=== PATIENT | male | born 1950 | race Caucasian/White ===

== ENCOUNTER 2020-02-18 06:20 | Day surgery (SDC) | payer MEDICARE, SELFPAY ==
[2020-02-12 10:21] VITALS: BMI 23.7
--- NOTE | 2020-02-17 08:33 | HO.ANESPROP2 ---
Documented by User: Althea Carvajal 02/17/20 10:44 HPI - Anesthesia Eval Consult details Narrative: 69yo M for colonoscopy [facility] Past Medical History Medical History Aortic regurgitation Cardiomyopathy History of bradycardia Hypertension Surgical History Surgical History (Updated 02/12/20 @ 10:18 by Elizabeth Savage) Hx of colonoscopy Social History Social History Are you a primary continuum of care manager to a significant other at home: No Do you presently have visiting nurse or other home services: No Smoking Status: Never smoker Use of substances other than those prescribed or required for medical reasons: No Advance Directives: No Advance Directives Information Provided: No Advance Directives on File: No Recently lost weight without trying: No Meds Allergies Allergy/AdvReac Type Severity Reaction Status Date / Time No Known Allergies Allergy Verified 02/12/20 10:18 Home Medications Medication Instructions Recorded Confirmed Type omega-3 fatty acids-vitamin E 1 cap 02/12/20 History [Fish Oil] Exam Exam Date and Time: February 17, 2020 0833 Height,Weight and Vital Signs: Height 5 ft 11 in Weight 77.111 kg Narrative Narrative: ECHO 09/2019: EF 55-60%, mod AR, mild MR, asc aorta dialted @4.1cm - no change from 2019 Assessment and Plan Assessment Anesthesia Assessment: Chart Reviewed Documented by User: Jenn Street 02/18/20 07:24 [facility] Past Medical History Medical History Aortic regurgitation Cardiomyopathy History of bradycardia Hypertension Surgical History Surgical History (Updated 02/12/20 @ 10:18 by Elizabeth Savage) Hx of colonoscopy Social History Social History Are you a primary continuum of care manager to a significant other at home: No Do you presently have visiting nurse or other home services: No Smoking Status: Never smoker Use of substances other than those prescribed or required for medical reasons: No Advance Directives: No Advance Directives Information Provided: No Advance Directives on File: No Recently lost weight without trying: No Meds Allergies Allergy/AdvReac Type Severity Reaction Status Date / Time No Known Allergies Allergy Verified 02/12/20 10:18 Home Medications Medication Instructions Recorded Confirmed Type omega-3 fatty acids-vitamin E 1 cap 02/12/20 History [Fish Oil] Exam Airway Mallampati Class: I TM Dist: >3cm Neck ROM: Full Partial: Lower (Perm) Heart: RRR Lungs: CTA BL Assessment and Plan Assessment Anesthesia Assessment: Anesthesia Plan Discussed and Chart Reviewed Final Anesthetic Review NPO: Yes ASA Class: I Final Preanesthetic Review: Meds/Allgs Chart Reviewed and Consent Obtained/Reviewed Patient Risk: Low Procedure Risk: Intermediate Anesthetic Plan Anesthetic Plan: MAC: Disposition: Standard PACU
[2020-02-18 06:36] VITALS: BP 160/78; PULSE 49; RESP 16; TEMP 36.5; O2SAT 100
[2020-02-18 08:17] VITALS: BP 106/57; PULSE 44; RESP 16; TEMP 36.3; O2SAT 96
--- NOTE | 2020-02-18 08:22 | PM.OP ---
Brief Operative Note Date of procedure: 02/18/20 Pre-op diagnosis: Screening Post-op diagnosis: other (Diverticulosis, Internal hemorrhoids) Procedure: Colonoscopy to cecum and TI Surgeon: Tray Hutson Anesthesia: MAC Estimated blood loss (mL): 0 Pathology: none sent Condition: stable Disposition: PACU
[2020-02-18 08:32] VITALS: BP 142/76; PULSE 41; RESP 18; O2SAT 100
--- NOTE | 2020-02-18 09:03 | HO.POSTANES ---
Post Anesthesia Evaluation Post Anesthesia Evaluation Vital Signs: Vital Signs Temp Pulse Resp BP Pulse Ox 02/18/20 08:32 97.4 F 41 L 18 142/76 H 100 02/18/20 08:17 97.4 F 44 L 16 106/57 L 96 02/18/20 06:36 97.7 F 49 L 16 160/78 H 100 Anesthesia: Monitored Mental Status: Awake Pain Control: Satisfactory Nausea/Vomiting: None Hydration: Adequate Anesthesia-Related Issues: No Anes. Related Issues
--- NOTE | 2020-02-18 10:45 | OP_ITS ---
SURGEON: Tray Hutson MD INDICATIONS: The patient presents for evaluation of colorectal cancer screening, personal history of tubular adenoma of the colon, and family history of colon cancer. Full consent has been obtained from him for this, including risks of bleeding and perforation. PREOPERATIVE DIAGNOSIS: POSTOPERATIVE DIAGNOSIS: PROCEDURE PERFORMED: Colonoscopy to the cecum and terminal ileum. ESTIMATED BLOOD LOSS: COMPLICATIONS: ANESTHESIA: Monitored anesthesia care. ASSISTANTS: SPECIMENS: PREOPERATIVE DIAGNOSES: Colorectal cancer screening, family history of colon cancer, personal history of tubular adenoma of the colon. POSTOPERATIVE DIAGNOSES: Colorectal cancer screening, family history of colon cancer, personal history of tubular adenoma of the colon, mild sigmoid diverticulosis, small internal hemorrhoids. DESCRIPTION OF PROCEDURE: The patient was placed in the left lateral decubitus position. The digital rectal exam revealed no abnormalities. The Olympus video pediatric colonoscope was entered into the rectum and advanced easily to the cecum. Once in the cecum, I did identify normal-appearing cecal pouch with appendiceal orifice and a normal-appearing ileocecal valve. The terminal ileum was cannulated and appeared normal. The scope was withdrawn back in the colon. The entire cecum and ileocecal valve appeared normal. The scope was slowly withdrawn assessing all mucosal surfaces carefully. Preparation was excellent. I did not visualize any sign of polyps, colitis, nor angiodysplasia. There was a mild amount of sigmoid diverticulosis. In the rectum, scope was retroflexed visualizing internal hemorrhoids, but no other pathology. The rectal mucosa appeared normal. The scope was straightened out and withdrawn from the patient. He tolerated the procedure well and was returned to the recovery area in stable condition. IMPRESSION: 1. Mild sigmoid diverticulosis. 2. Internal hemorrhoids. PLAN: Given his previous history of a tubular adenoma and family history of colon cancer, I would recommend a followup colonoscopy in 5 years for further screening. He will otherwise see me on a p.r.n. basis. MD DANDRE Braun/VIRA / [phone]
== END 2020-02-18 09:11 | disposition home or self-care (01) ==
PROVIDERS: PCP Internal Medicine; Visit Provider Internal Medicine
PROC: 0DJD8ZZ Inspection of Lower Intestinal Tract, Via Natural or Artificial Opening Endoscopic (ICD-10-PCS; CPT 45378; principal; 2020-02-18 07:30)
DX: Z12.11 Encounter for screening for malignant neoplasm of colon (principal); Z80.0 Family history of malignant neoplasm of digestive organs; Z86.010 Personal history of colon polyps; K57.30 Diverticulosis of large intestine without perforation or abscess without bleeding; K64.8 Other hemorrhoids
CPT/HCPCS: G0105

== ENCOUNTER 2020-04-15 06:21 | Outpatient (REF) | payer MEDICARE, SELFPAY ==
[2020-04-15 07:04] LABS: Basophils Percent Auto 0.5 % (0-2); Eosinophils Absolute Auto 0.4 X10*3/uL (0.0-0.4); Eosinophils Percent Auto 6.4 % (0-4); Hematocrit 42.2 % (42-52); Hemoglobin 13.7 g/dl (14.0-18.0); Imm Gran Abs Auto 0.01 X10*3/uL (0.00-0.03); Imm Gran Pct Auto 0.2 % (0.0-0.4); Lymphocytes Percent Auto 45.6 % (20-40); MANUAL DIFF FLAG NO; Mean Corpuscular HGB Conc 32.5 g/dl (31.0-36.0); Mean Corpuscular Volume 92.3 fL (80-98); Mean Platelet Volume 9.8 fL (9.4-12.4); Monocytes Absolute Auto 0.5 X10*3/uL (0.1-1.2); Monocytes Percent Auto 8.3 % (2-11); Neutrophils Absolute Auto 2.6 X10*3/uL (2.0-8.3); Platelet Count 242 X10*3/uL (160-400); Red Blood Count 4.57 X10*6/uL (4.60-5.80); Red Cell Distribution Width 12.4 % (11.0-16.0); White Blood Count 6.5 X10*3/uL (4.8-10.8)
[2020-04-15 07:23] LABS: Glucose Urine UA NEG (NEG); Leukocyte Esterase Urine NEG (NEG); Nitrite Urine NEG (NEG); Specific Gravity - Urine 1.025 (1.005-1.025); Urine Blood NEG (NEG); Urine Ketones NEG (NEG); Urine Protein NEG (NEG-TRACE)
[2020-04-15 07:29] LABS: Appearance Urine CLEAR; Color Urine YELLOW
[2020-04-15 07:46] LABS: B Type Natriuretic Peptide 11 pg/mL (<100)
[2020-04-15 07:49] LABS: Alanine Aminotransferase 15 U/L (0-40); Alkaline Phosphatase 67 U/L (39-117); Anion Gap 11 (12-20); Aspartate Amino Transferase 25 U/L (5-37); Bilirubin Total 0.7 mg/dL (0.0-1.0); Blood Urea Nitrogen 26 mg/dL (9-16); C Reactive Protein 0.14 mg/dL (< or = 0.50); Calcium 9.2 mg/dL (8.4-10.2); Carbon Dioxide 27 mmol/L (22-29); Chloride 106 mmol/L (96-108); Cholesterol 261 mg/dL; Estimated Glomerular Filt Rate > 60; Glucose Fasting 97 mg/dL (60-99); HDL Cholesterol 67 mg/dL; LDL Cholesterol Calculated 175 mg/dl; Potassium 4.5 mmol/l (3.3-5.1); Sodium 139 mmol/L (135-145); Total Protein 7.6 g/dL (6.5-8.0); Triglycerides 95 mg/dL
[2020-04-15 07:51] LABS: Erythrocyte Sedimentation Rate 14 MM/HR (0-15)
[2020-04-15 08:14] LABS: Prostate Specific Antigen Scr 0.41 ng/mL (<0.05-4.0); TSH reflex Free T4 3.58 mIU/mL (0.32-4.0); Vitamin D 25-OH Total 27.5 ng/mL (>30)
== END 2020-04-15 06:22 | disposition home or self-care (01) ==
LOC: HO.LAB 06:21
PROVIDERS: PCP Internal Medicine; Visit Provider Internal Medicine
DX: Z00.00 Encounter for general adult medical examination without abnormal findings (principal); I42.9 Cardiomyopathy, unspecified; I35.1 Nonrheumatic aortic (valve) insufficiency; R29.898 Other symptoms and signs involving the musculoskeletal system; E78.00 Pure hypercholesterolemia, unspecified; E55.9 Vitamin D deficiency, unspecified; Z12.5 Encounter for screening for malignant neoplasm of prostate
CPT/HCPCS: 36415; 80053; 80061; 81003; 82306; 82550; 83880; 84153; 84443; 85025; 85652; 86140

== ENCOUNTER 2021-01-21 11:43 | Outpatient (REF) | payer MEDICARE, SELFPAY ==
--- NOTE | ~2021-01-21 | XR_ITS ---
EXAMINATION: XR CERVICAL SPINE CLINICAL INFORMATION: Neck pain. COMPARISON: None TECHNIQUE: 4 views of the cervical spine were obtained. FINDINGS: There is maintained cervical lordosis. The vertebral heights, alignment and disc heights are normal. There is no visible acute fracture, dislocation or subluxation seen. There is mild ventral inferior endplate spondylosis C4 vertebra. There is mild bilateral C4-C5 facet joint arthropathy and hypertrophy. The prevertebral soft tissues are normal. XR/XR cervical spine 3V IMPRESSION: Unremarkable cervical spine exam.
== END 2021-01-21 11:44 | disposition home or self-care (01) ==
LOC: HO.HMGCX 11:43
PROVIDERS: PCP Internal Medicine; Visit Provider Physician Assistant Medical
DX: M54.2 Cervicalgia (principal)
CPT/HCPCS: 72040

== ENCOUNTER 2021-04-20 06:17 | Outpatient (REF) | payer MEDICARE, SELFPAY ==
[2021-04-20 06:33] LABS: MANUAL DIFF FLAG NO
[2021-04-20 07:06] LABS: Basophils Percent Auto 0.5 % (0-2); Eosinophils Absolute Auto 0.4 X10*3/uL (0.0-0.4); Eosinophils Percent Auto 5.7 % (0-4); Hematocrit 42.2 % (42.0-52.0); Hemoglobin 13.6 g/dl (14.0-18.0); Imm Gran Abs Auto 0.02 X10*3/uL (0.00-0.03); Imm Gran Pct Auto 0.3 % (0.0-0.4); Lymphocytes Percent Auto 46.5 % (20-40); Mean Corpuscular HGB Conc 32.2 g/dl (31.0-36.0); Mean Corpuscular Hemoglobin 29.9 pg (27.0-33.0); Mean Corpuscular Volume 92.7 fL (80.0-98.0); Mean Platelet Volume 10.1 fL (9.4-12.4); Monocytes Absolute Auto 0.6 X10*3/uL (0.1-1.2); Monocytes Percent Auto 8.7 % (2-11); Neutrophils Absolute Auto 2.4 x10*3/uL (2.0-8.3); Neutrophils Percent Auto 38.3 % (45-73); Platelet Count 254 X10*3/uL (160-400); Red Blood Count 4.55 X10*6/uL (4.60-5.80); Red Cell Distribution Width 12.5 % (11.0-16.0); White Blood Count 6.3 X10*3/uL (4.8-10.8)
[2021-04-20 07:30] LABS: Alanine Aminotransferase 20 U/L (0-40); Albumin Level 4.1 g/dL (3.5-5.0); Alkaline Phosphatase 65 U/L (39-117); Anion Gap 12 (12-20); Aspartate Amino Transferase 28 U/L (5-37); Bilirubin Total 0.6 mg/dL (0.0-1.0); Blood Urea Nitrogen 26 mg/dL (9-16); Calcium 9.5 mg/dL (8.4-10.2); Carbon Dioxide 26 mmol/L (22-29); Chloride 106 mmol/L (96-108); Cholesterol 267 mg/dL; Estimated Glomerular Filt Rate > 60; Glucose Fasting 98 mg/dL (60-99); HDL Cholesterol 70 mg/dL; LDL Cholesterol Calculated 175 mg/dl; Potassium 4.4 mmol/L (3.3-5.1); Sodium 140 mmol/L (135-145); Total Protein 7.5 g/dL (6.5-8.0); Triglycerides 110 mg/dL
[2021-04-20 07:44] LABS: Appearance Urine CLEAR; Color Urine YELLOW; Glucose Urine UA NEG (NEG); Leukocyte Esterase Urine NEG (NEG); Nitrite Urine NEG (NEG); PH 6.5 (5.0-8.0); Urine Blood NEG (NEG); Urine Ketones NEG (NEG); Urine Protein NEG (NEG-TRACE)
[2021-04-20 07:57] LABS: Prostate Specific Antigen 0.43 ng/mL (<0.05-4.0); Vitamin D 25-OH Total 27.9 ng/mL (>30)
== END 2021-04-20 06:18 | disposition home or self-care (01) ==
LOC: HO.LAB 06:17
PROVIDERS: PCP Internal Medicine; Visit Provider Internal Medicine
DX: Z00.00 Encounter for general adult medical examination without abnormal findings (principal); Z12.5 Encounter for screening for malignant neoplasm of prostate; E78.00 Pure hypercholesterolemia, unspecified; N40.0 Benign prostatic hyperplasia without lower urinary tract symptoms; E55.9 Vitamin D deficiency, unspecified
CPT/HCPCS: 36415; 80053; 80061; 81003; 82306; 84153; 84443; 85025

== ENCOUNTER 2022-04-20 06:23 | Outpatient (REF) | payer MEDICARE, SELFPAY ==
[2022-04-20 06:31] LABS: MANUAL DIFF FLAG NO
[2022-04-20 07:27] LABS: Basophils Percent Auto 0.6 % (0-2); Eosinophils Absolute Auto 0.3 X10*3/uL (0.0-0.4); Eosinophils Percent Auto 5.4 % (0-4); Hematocrit 42.2 % (42.0-52.0); Hemoglobin 13.6 g/dl (14.0-18.0); Imm Gran Abs Auto 0.02 X10*3/uL (0.00-0.03); Imm Gran Pct Auto 0.3 % (0.0-0.4); Lymphocytes Percent Auto 48.1 % (20-40); Mean Corpuscular HGB Conc 32.2 g/dl (31.0-36.0); Mean Corpuscular Hemoglobin 29.6 pg (27.0-33.0); Mean Corpuscular Volume 91.9 fL (80.0-98.0); Mean Platelet Volume 9.9 fL (9.4-12.4); Monocytes Absolute Auto 0.6 X10*3/uL (0.1-1.2); Monocytes Percent Auto 8.9 % (2-11); Neutrophils Absolute Auto 2.3 x10*3/uL (2.0-8.3); Neutrophils Percent Auto 36.7 % (45-73); Platelet Count 244 X10*3/uL (160-400); Red Blood Count 4.59 X10*6/uL (4.60-5.80); Red Cell Distribution Width 12.5 % (11.0-16.0); White Blood Count 6.3 X10*3/uL (4.8-10.8)
[2022-04-20 08:07] LABS: Erythrocyte Sedimentation Rate 12 MM/HR (0-15)
[2022-04-20 08:14] LABS: Alanine Aminotransferase 18 U/L (0-40); Albumin Level 4.2 g/dL (3.5-5.0); Alkaline Phosphatase 57 U/L (39-117); Anion Gap 10 (12-20); Aspartate Amino Transferase 28 U/L (5-37); Blood Urea Nitrogen 25 mg/dL (9-16); Calcium 9.6 mg/dL (8.4-10.2); Carbon Dioxide 30 mmol/L (22-29); Chloride 106 mmol/L (96-108); Cholesterol 267 mg/dL; Estimated Glomerular Filt Rate 58; Glucose Fasting 97 mg/dL (60-99); HDL Cholesterol 68 mg/dL; LDL Cholesterol Calculated 181 mg/dl; Potassium 4.7 mmol/L (3.3-5.1); Prostate Specific Antigen 0.39 ng/mL (<0.05-4.0); Sodium 141 mmol/L (135-145); TSH reflex Free T4 3.15 uIU/mL (0.32-4.0); Total Protein 7.5 g/dL (6.5-8.0); Triglycerides 92 mg/dL; Vitamin D 25-OH Total 30.7 ng/mL (>30)
[2022-04-20 09:05] LABS: Appearance Urine Clear; Color Urine Yellow; Glucose Urine UA Negative (Negative); Leukocyte Esterase Urine Negative (Negative); Nitrite Urine Negative (Negative); PH 6.5 (5.0-9.0); Specific Gravity - Urine 1.025 (1.005-1.025); Urine Blood Negative (Negative); Urine Ketones Negative (Negative); Urine Protein Negative (Neg-Trace)
== END 2022-04-20 06:24 | disposition home or self-care (01) ==
LOC: HO.LAB 06:23
PROVIDERS: PCP Internal Medicine; Visit Provider Internal Medicine
DX: Z00.00 Encounter for general adult medical examination without abnormal findings (principal); Z12.5 Encounter for screening for malignant neoplasm of prostate; R10.11 Right upper quadrant pain; N40.0 Benign prostatic hyperplasia without lower urinary tract symptoms; E55.9 Vitamin D deficiency, unspecified; I10 Essential (primary) hypertension; R30.0 Dysuria; E78.00 Pure hypercholesterolemia, unspecified
CPT/HCPCS: 36415; 80053; 80061; 81003; 82306; 84153; 84443; 85025; 85652

== ENCOUNTER 2022-04-25 13:39 | Outpatient (REF) | payer MEDICARE, SELFPAY ==
--- NOTE | ~2022-04-25 | US_ITS ---
EXAMINATION: US ABDOMEN COMPLETE CLINICAL INFORMATION: Right upper quadrant pain. COMPARISON: None TECHNIQUE: Real-time imaging of the abdominal viscera. Technically difficult study secondary to bowel gas and body habitus. FINDINGS: PANCREAS: The pancreas is obscured by gas. ABDOMINAL AORTA: The abdominal aorta is of normal caliber. INFERIOR VENA CAVA: Visualized portions are normal. LIVER: There is limited visualization of left hepatic lobe. The liver is normal in size. The liver contour is normal. Parenchymal echogenicity is normal. No focal hepatic lesion. There is no intrahepatic biliary duct dilatation seen. GALLBLADDER: Gallbladder wall thickness is 0.6 cm. The gallbladder is physiologically distended without evidence of stones, sludge, polyps, or pericholecystic fluid. COMMON BILE DUCT: Normal in caliber measuring 0.4 cm in diameter. RIGHT KIDNEY: Normal. No hydronephrosis. No renal calculi or focal parenchymal lesions. The kidney measures 10.0 cm in maximum dimension. LEFT KIDNEY: Normal. No hydronephrosis. No renal calculi or focal parenchymal lesions. The kidney measures 10.7 cm in maximum dimension. SPLEEN: Normal. The spleen measures 8.2 cm in maximum dimension. FREE FLUID: None. US/US abdomen complete IMPRESSION: Very limited exam due to body habitus. Otherwise unremarkable complete abdomen ultrasound.
== END 2022-04-25 13:40 | disposition home or self-care (01) ==
LOC: HO.US 13:39
PROVIDERS: Visit Provider Internal Medicine
DX: R10.11 Right upper quadrant pain (principal)
CPT/HCPCS: 76700

== ENCOUNTER 2022-06-03 07:09 | Outpatient (REF) | payer MEDICARE, SELFPAY ==
[2022-06-03 09:10] LABS: Alanine Aminotransferase 19 U/L (0-40); Albumin Level 4.1 g/dL (3.5-5.0); Alkaline Phosphatase 66 U/L (39-117); Anion Gap 13 (12-20); Aspartate Amino Transferase 30 U/L (5-37); Blood Urea Nitrogen 21 mg/dL (9-16); Calcium 9.6 mg/dL (8.4-10.2); Carbon Dioxide 25 mmol/L (22-29); Chloride 108 mmol/L (96-108); Estimated Glomerular Filt Rate > 60; Glucose Random 97 mg/dL (60-115); Sodium 141 mmol/L (135-145); Total Protein 7.4 g/dL (6.5-8.0)
== END 2022-06-03 07:10 | disposition home or self-care (01) ==
LOC: HO.LAB 07:09
PROVIDERS: Nurse Practitioner Family; PCP Internal Medicine; Visit Provider Internal Medicine
DX: R10.11 Right upper quadrant pain (principal)
CPT/HCPCS: 36415; 80053

== ENCOUNTER 2022-06-05 13:11 | Outpatient (REF) | payer MEDICARE, SELFPAY ==
--- NOTE | ~2022-06-05 | CT_ITS ---
EXAMINATION: CT ABDOMEN WITH CONTRAST CLINICAL INFORMATION: Pain of right upper quadrant. COMPARISON: Abdomen ultrasound from 04/25/2022. TECHNIQUE: Contiguous axial thin section helical images of the abdomen were performed following the administration of oral contrast and 85 mL of Omnipaque [address] examination was performed using dose optimization techniques as appropriate, variously including the following: *Automated exposure control *Adjustment of mA and/or kV according to patient size (this includes techniques or standardized protocols for targeted exams where dose is matched to indication/reason for exam; i.e. extremities or head) *Use of iterative reconstruction technique DLP: 224 mGy-cm FINDINGS: LUNG BASES: Minimal linear, hazy opacities of atelectasis in the lung bases. No pulmonary consolidation or pleural effusion. Aortic valve is calcified. No pericardial effusion. LIVER: Liver has normal size and contour. A small area of decreased attenuation in the left hepatic lobe is consistent with focal steatosis near the falciform ligament. No suspicious liver lesion. GALLBLADDER AND BILIARY TREE: Gallbladder is without radiopaque stones, wall thickening or pericholecystic fluid. No dilated bile ducts. PANCREAS: Normal. No edema, pancreatic ductal dilatation or mass. SPLEEN: Normal. ADRENAL GLANDS: Normal. KIDNEYS AND URETERS: Kidneys are normal in size and enhance symmetrically. No nephrolithiasis, hydronephrosis or perinephric edema. Findings include 0.8 cm simple cortical cyst of the left upper pole. No renal imaging follow-up is recommended for simple cysts. The visualized proximal ureters are unremarkable. BOWEL AND PERITONEUM: Stomach and visualized loops of bowel are normal. No focal bowel wall thickening, mesenteric fat stranding or free fluid. No pneumoperitoneum. ABDOMINAL WALL: Minimal protrusion of fat into the umbilicus. VASCULATURE: Mild atherosclerotic calcification of the abdominal aorta without aneurysm. LYMPH NODES: No pathologic sized lymph nodes. MUSCULOSKELETAL: Diffuse idiopathic skeletal hyperostosis as manifest by presence of bulky flowing anterior ligament ossification of the visualized thoracic spine. Prominent enthesophytes and osteophytes of the lumbosacral spine. Moderate degenerative disc space narrowing, vacuum disc phenomenon and 0.3 cm retrolisthesis at L5-S1. No evidence of rib fracture within the visualized portion of the lower chest. CT/CT abdomen w IV con IMPRESSION: * No specific source of right upper quadrant pain is identified. * No CT imaging evidence of cholelithiasis, cholecystitis or biliary tract obstruction. * No inflammatory change or obstruction along the visualized gastrointestinal tract.
[2022-06-05] MEDS: Barium Sulfate Oral (Vanilla) 450 ML ORAL.SUSP PO (15:06)
[2022-06-05] MEDS: iohexoL 350 MG/ML 100 ML INFUS..BTL 85 ML IV (15:06)
== END 2022-06-05 13:12 | disposition home or self-care (01) ==
LOC: HO.CT 13:11
PROVIDERS: PCP Internal Medicine; Visit Provider Nurse Practitioner Family
DX: R10.11 Right upper quadrant pain (principal)
CPT/HCPCS: 74160; Q9967

== ENCOUNTER → 2022-07-28 08:15 | Outpatient (BNVA) | payer MEDICARE, SELFPAY | PROVIDERS: PCP Internal Medicine; Visit Provider Nurse Practitioner Family | DX: R10.11 Right upper quadrant pain (principal) | CPT/HCPCS: 99202 ==

== ENCOUNTER 2022-10-13 06:20 | Outpatient (REF) | payer MEDICARE, SELFPAY ==
[2022-10-13 08:01] LABS: Alanine Aminotransferase 17 U/L (0-40); Alkaline Phosphatase 61 U/L (39-117); Anion Gap 11 (12-20); Aspartate Amino Transferase 34 U/L (5-37); Bilirubin Total 1.3 mg/dL (0.0-1.0); Blood Urea Nitrogen 22 mg/dL (9-16); Calcium 9.5 mg/dL (8.4-10.2); Carbon Dioxide 26 mmol/L (22-29); Chloride 108 mmol/L (96-108); Cholesterol 184 mg/dL; Estimated Glomerular Filt Rate > 60; Glucose Fasting 94 mg/dL (60-99); HDL Cholesterol 73 mg/dL; LDL Cholesterol Calculated 100 mg/dl; Potassium 4.1 mmol/L (3.3-5.1); Sodium 141 mmol/L (135-145); Total Protein 7.5 g/dL (6.5-8.0); Triglycerides 56 mg/dL
== END 2022-10-13 06:21 | disposition home or self-care (01) ==
LOC: HO.LAB 06:20
PROVIDERS: PCP Internal Medicine; Visit Provider Internal Medicine
DX: E78.00 Pure hypercholesterolemia, unspecified (principal)
CPT/HCPCS: 36415; 80053; 80061

== ENCOUNTER 2023-04-14 07:03 | Outpatient (REF) | payer MEDICARE, SELFPAY ==
[2023-04-14 07:16] LABS: MANUAL DIFF FLAG NO
[2023-04-14 09:17] LABS: Basophils Percent Auto 0.3 % (0-2); Eosinophils Absolute Auto 0.4 X10*3/uL (0.0-0.4); Eosinophils Percent Auto 6.1 % (0-4); Hematocrit 40.2 % (42.0-52.0); Hemoglobin 12.9 g/dl (14.0-18.0); Imm Gran Abs Auto 0.02 X10*3/uL (0.00-0.03); Imm Gran Pct Auto 0.3 % (0.0-0.4); Lymphocytes Absolute Auto 3.1 X10*3/uL (1.2-4.9); Lymphocytes Percent Auto 46.7 % (20-40); Mean Corpuscular HGB Conc 32.1 g/dl (31.0-36.0); Mean Corpuscular Hemoglobin 29.9 pg (27.0-33.0); Mean Corpuscular Volume 93.1 fL (80.0-98.0); Mean Platelet Volume 10.2 fL (9.4-12.4); Monocytes Absolute Auto 0.5 X10*3/uL (0.1-1.2); Monocytes Percent Auto 8.1 % (2-11); Neutrophils Absolute Auto 2.5 x10*3/uL (2.0-8.3); Neutrophils Percent Auto 38.5 % (45-73); Platelet Count 225 X10*3/uL (160-400); Red Blood Count 4.32 X10*6/uL (4.60-5.80); Red Cell Distribution Width 12.5 % (11.0-16.0); White Blood Count 6.5 X10*3/uL (4.8-10.8)
[2023-04-14 09:27] LABS: Appearance Urine Clear; Color Urine Yellow; Glucose Urine UA Negative (Negative); Leukocyte Esterase Urine Negative (Negative); Nitrite Urine Negative (Negative); PH 6.5 (5.0-9.0); Specific Gravity - Urine 1.025 (1.005-1.025); Urine Blood Negative (Negative); Urine Ketones Negative (Negative); Urine Protein Negative (Neg-Trace)
[2023-04-14 09:52] LABS: Alanine Aminotransferase 19 U/L (0-40); Albumin Level 4.1 g/dL (3.5-5.0); Alkaline Phosphatase 64 U/L (39-117); Anion Gap 11 (12-20); Aspartate Amino Transferase 34 U/L (5-37); Bilirubin Total 0.7 mg/dL (0.0-1.0); Blood Urea Nitrogen 25 mg/dL (9-16); Calcium 9.4 mg/dL (8.4-10.2); Carbon Dioxide 28 mmol/L (22-29); Chloride 106 mmol/L (96-108); Cholesterol 177 mg/dL (<200); Estimated Glomerular Filt Rate > 60; Glucose Fasting 93 mg/dL (60-99); HDL Cholesterol 74 mg/dL (>40); LDL Cholesterol Calculated 91 mg/dL (<100); Potassium 4.2 mmol/L (3.3-5.1); Sodium 141 mmol/L (135-145); Total Protein 7.7 g/dL (6.5-8.0); Triglycerides 63 mg/dL (<150)
[2023-04-14 09:58] LABS: TSH reflex Free T4 3.44 uIU/mL (0.32-4.0); Vitamin D 25-OH Total 31.8 ng/mL (>30)
[2023-04-14 10:00] LABS: Prostate Specific Antigen 0.38 ng/mL (<0.05-4.0)
== END 2023-04-14 07:04 | disposition home or self-care (01) ==
LOC: HO.LAB 07:03
PROVIDERS: PCP Internal Medicine; Visit Provider Internal Medicine
DX: Z00.00 Encounter for general adult medical examination without abnormal findings (principal); I10 Essential (primary) hypertension; R30.0 Dysuria; E55.9 Vitamin D deficiency, unspecified; N40.0 Benign prostatic hyperplasia without lower urinary tract symptoms; E78.00 Pure hypercholesterolemia, unspecified; Z12.5 Encounter for screening for malignant neoplasm of prostate
CPT/HCPCS: 36415; 80053; 80061; 81003; 82306; 84153; 84443; 85025

== ENCOUNTER 2023-04-20 09:59 | Outpatient (AMB) | payer MEDICARE, SELFPAY ==
[2023-04-20 10:05] VITALS: BP 150/80; PULSE 57; O2SAT 98; BMI 22.4
--- NOTE | 2023-04-20 10:05 | MHC.PC.OV ---
Vital Signs 04/20/23 10:05 04/20/23 10:53 Height 6 ft Weight 165 lb 4 oz BMI 22.4 BP 150/80 H 130/88 Blood Pressure Location Lt brachial Lt brachial Position Sitting Sitting Pulse 57 Pulse Source Pulse Oximeter Pulse Oximetry (%) 98 Oxygen Delivery Method Room Air Intake Visit Reasons: PE Field Care Coordinator Required: No Accompanied by: Self / Same As Patient Allergies No Known Allergies Allergy (Verified 04/20/23 10:43) Medication List - Last Reconciled 04/20/23 by Rinku Biggs MD atorvastatin 10 mg PO BEDTIME 90 days omeprazole 20 mg PO DAILY sildenafil (Viagra) 100 mg PO DAILY PRN 30 days simethicone 125 mg PO BID-QID PRN Tobacco use date assessed: 10/19/22 Fall risk assessment: No Falls in past year Last assessed Fall Risk: 04/20/23 Dental Screening Dental Screen Date: 04/20/23 Did you have a dental visit in the last 12 months?: Yes Did you have a dental problem in the last 6 months where you did not have access to dental care?: No Was dental information given to patient?: Patient has dentist HPI PE HPI Details Patient comes in today for his annual physical examination States that he feels okay BP was at 127/78 mm when he checked it at home yesterday He denies any headaches or dizziness Denies any chest pains, no SOB No nausea/vomiting, no abdominal pain No change in bowel habits noted Denies any acute urinary symptoms Still has on and off right shoulder pain but states that it has been more manageable lately Had his follow up labs done last week - to discuss his results Had his screening colonoscopy last done with Dr. Hutson in January 2020 - was recommended to get repeat colonoscopy in 5 years (2024) PFSH Medical History Thoracic, thoracolumbar and lumbosacral intervertebral disc disorder Erectile dysfunction Vitamin D deficiency Transient leg weakness Pure hypercholesterolemia History of bradycardia Hypertension Aortic regurgitation Cardiomyopathy Surgical History Hx of colonoscopy Family History Father Diabetes Prostate cancer Mother Dementia Social History Housing: House Are you a primary after school caregiver to a significant other at home: No Do you presently have visiting nurse or other home services: No Alcohol intake: current Alcohol intake frequency: holidays/special occasions only Alcohol type: wine Patient Tobacco Use Status: Never used Tobacco e-Cigarette/Vaping Use: Never Used Second Hand Smoke Exposure: No service: No Current occupational status: retired Cognitive needs: No Hearing needs: No Vision needs: No Questionnaire PHQ-9 Over the last 2 weeks, how often have you been bothered by any of the following problems? Depression Screening Interpretation: Negative Depression Screening Done: Yes Source: Developed by Drs. Tray Berman, Sen Duran and colleagues, with an educational gerardo from [employer]. Thrive Questionnaire Date Thrive assessed: 10/19/22 Currently or been in a relationship where the following occur: no concerns reported LOAN-7 AMB Questionnaire LOAN-7 Date LOAN - 7 assessed: 10/19/22 Source: Developed by Drs. Tray Berman, Sen Duran and colleagues, with an educational gerardo from [employer]. Review of Systems Const Denies chills, Denies fatigue, Denies fever(s), Denies headache(s), Denies malaise and Denies weakness Eyes Denies blurry vision, Denies change in vision, Denies irritation and Denies itchy eyes ENT Denies dysphagia, Denies dizziness, Denies otalgia, Denies headache(s), Denies nasal congestion, Denies neck pain, Denies odynophagia and Denies sore throat Card Denies chest pain, Denies rapid heart rate, Denies irregular heart rhythm, Denies palpitations and Denies dyspnea Resp Denies chest congestion, Denies cough, Denies dyspnea and Denies wheezing GI Denies abdominal pain, Denies bloating, Denies constipation, Denies dysphagia, Denies heartburn, Denies diarrhea, Denies nausea, Denies odynophagia and Denies vomiting Denies hematuria, Denies difficulty urinating, Denies dysuria, Denies urinary frequency and Denies urinary urgency Musc Denies back pain, Reports arthralgias (on and off in the right shoulder), Denies joint swelling, Denies muscle weakness and Denies neck pain Skin/Breast Denies change in pigmentation, Denies lesions, Denies rash and Denies unusual bruising Neuro Denies dizziness, Denies headache(s), Denies paresthesias and Denies weakness Endo Denies fatigue and Denies palpitations Aller/Immun Denies itchy eyes and Denies wheezing Physical exam (Primary Care) Vital Signs: Last Vital Signs Pulse 57 04/20/23 10:05 BP 150/80 H 04/20/23 10:05 Pulse Ox 98 04/20/23 10:05 Oxygen Delivery Method Room Air 04/20/23 10:05 BMI result Body Mass Index 22.4 Tobacco/Smoking Status: Tobacco use Status Tobacco use date assessed 10/19/22 04/20/23 10:09 Patient Tobacco Use Status Never used Tobacco 04/20/23 10:09 e-Cigarette/Vaping Use Never Used 04/20/23 10:09 Depression Screening Interpretation: Negative Thrive Assessment: Date of Thrive Assessment Date Thrive assessed 10/19/22 04/20/23 10:09 Currently or been in a relationship where the following occur: no concerns reported Const General: no acute distress, alert and awake Orientation/consciousness: patient oriented x3 HENMT Head: Yes normocephalic and Yes atraumatic Ears: external ears normal, TM's normal bilaterally and EAC's normal General nose exam: No nasal discharge present Face and sinus: Yes normal facial exam and Yes sinuses nontender Teeth and gingiva: dentition normal Throat: Yes posterior oropharynx normal and Yes tonsils normal (no TP congestion) Eyes Eyelids: Yes eyelids normal Conjunctivae: conjunctivae normal Pupils: Equal, round and reactive pupils present EOM: EOMs intact bilaterally Neck Neck: Yes no lymphadenopathy and Yes supple Thyroid: Thyroid normal Resp Auscultation: clear to auscultation bilaterally, no rales and no wheezes Cardio Rate: regular rate Rhythm: regular rhythm Heart sounds: no murmurs GI Palpation (GI): Soft to palpation, nontender and No hepatosplenomegaly present Auscultation: normal bowel sounds General: Yes no CVA tenderness Back/Spine/Pelvis Back: no CVA tenderness Thoracic/Lumbar Spine: thoracic and lumbar spine normal to inspection Skin Lesions: no lesions Rashes: no rashes Neuro General: patient oriented x3, moves all extremities, no focal motor deficits and CN's II-XI intact bilaterally Cranial nerves: Yes Equal, round and reactive pupils present Cognition (Neuro): normal cognition Gait exam (Neuro): Normal gait present Extrem General: Yes no clubbing, cyanosis or edema Results Reviewed Results Reviewed: Laboratory Tests 04/14/23 04/14/23 04/14/23 07:14 07:14 07:15 WBC 6.5 Hgb 12.9 L Hct 40.2 L Plt Count 225 Sodium 141 Potassium 4.2 Creatinine 1.10 Estimated GFR > 60 Fasting Glucose 93 Calcium 9.4 AST 34 ALT 19 Triglycerides 63 Cholesterol 177 LDL Cholesterol, Calc 91 HDL Cholesterol 74 Prostate Specific Ag 0.38 25-OH Vitamin D Total 31.8 TSH Urine pH 6.5 Ur Specific [place] 1.025 Urine Protein Negative Urine Glucose (UA) Negative Urine Blood Negative Urine Nitrite Negative Ur Leukocyte Esterase Negative 04/14/23 07:15 WBC Hgb Hct Plt Count Sodium Potassium Creatinine Estimated GFR Fasting Glucose Calcium AST ALT Triglycerides Cholesterol LDL Cholesterol, Calc HDL Cholesterol Prostate Specific Ag 25-OH Vitamin D Total TSH 3.44 Urine pH Ur Specific [place] Urine Protein Urine Glucose (UA) Urine Blood Urine Nitrite Ur Leukocyte Esterase Assessment and Plan Assessment & Plan (1) Annual physical exam: Code(s): Z00.00 - Encounter for general adult medical examination without abnormal findings Plan: Results of his labs done last week reviewed and discussed with patient He is up-to-date with his screening colonoscopy - is due for repeat colonoscopy in 2024 (2) Pure hypercholesterolemia: Code(s): E78.00 - Pure hypercholesterolemia, unspecified Plan: Advised that his cholesterol levels are adequately controlled and that this is the first time his LDL cholesterol has dropped to under 100 mg/dl Reinforced low cholesterol diet Continue Atorvastatin 10 mg QD Will recheck his labs and fasting lipids in 6 months for follow up (3) Cardiomyopathy: Comment: Sees Dr Wilkes yearly Code(s): I42.9 - Cardiomyopathy, unspecified Qualifiers: Cardiomyopathy type: unspecified Qualified Code(s): I42.9 - Cardiomyopathy, unspecified Plan: Mostly related to his aortic valve insufficiency Has been mostly asymptomatic lately Repeat echocardiogram done in December 2022 revealed normal left ventricular size, with moderate concentric left ventricular hypertrophy and overall left ventricular systolic function is normal, with EF between 60 to 65%. There is grade 1 diastolic dysfunction with an impaired relaxation filling pattern and normal filling pressures. The basal inferior area is mildly hypokinetic and left atrium is mildly dilated; RV systolic function is normal. AV valve is moderated calcified and there is [id number] aortic regurgitation and mild aortic stenosis - findings are most stable compared to echo done on 12/28/2021 Follow-up with cardiology (Dr. Wilkes) as scheduled (4) Aortic regurgitation: Code(s): I35.1 - Nonrheumatic aortic (valve) insufficiency Qualifiers: Cardiac valve disease etiology: nonrheumatic Qualified Code(s): I35.1 - Nonrheumatic aortic (valve) insufficiency Plan: Follow up with cardiology (Dr. Wilkes) as scheduled for continuing management and surveillance Had repeat echocardiogram done in December 2022 - echo findings are mostly unchanged from the year before (5) Elevated blood pressure reading without diagnosis of hypertension: Code(s): R03.0 - Elevated blood-pressure reading, without diagnosis of hypertension Plan: Most likely has white coat syndrome as his BP tends to be consistenly better and normal when he checks his BP at home Reinforced low sodium diet Patient is reminded to continue checking/monitoring his BP routinely at home (6) Mild anemia: Code(s): D64.9 - Anemia, unspecified Plan: H/H are still slightly low on her recent labs but are stable - H/H = 12.9/40.2 last week Will continue to monitor his CBC regularly - will recheck in 6 months (7) Eosinophilia: Code(s): D72.10 - Eosinophilia, unspecified Qualifiers: Eosinophilia type: unspecified eosinophilia Qualified Code(s): D72.10 - Eosinophilia, unspecified Plan: His eosinophil count/percentage has been noted to be slightly elevated persistently over the past few years Patient is currently asymptomatic Will need to continue monitoring this closely and will need further evaluation if this progresses (8) Vitamin D deficiency: Code(s): E55.9 - Vitamin D deficiency, unspecified Plan: Advised that his Vitamin D level came out normal on his recent labs (9) Erectile dysfunction: Code(s): N52.9 - Male erectile dysfunction, unspecified Qualifiers: Erectile dysfunction type: unspecified Qualified Code(s): N52.9 - Male erectile dysfunction, unspecified Plan: Continue Sildenafil 100 mg PRN as instructed Plan Follow up in 6 months Orders: Orders Comprehensive [place]. Panel Fast 6 Months E78.00 - Pure hypercholesterolemia, unspecified Lipid Panel 6 Months E78.00 - Pure hypercholesterolemia, unspecified Complete Blood Count Auto Diff 6 Months D64.9 - Anemia, unspecified, D72.10 - Eosinophilia, unspecified Hemoglobin Electrophoresis 6 Months D64.9 - Anemia, unspecified IRON PROFILE 6 Months D50.9 - Iron deficiency anemia, unspecified Erythropoietin (EPO) 6 Months D64.9 - Anemia, unspecified Vitamin B12 and Folate 6 Months E53.8 - Deficiency of other specified B group vitamins Eosinophil Count, Total 6 Months D72.10 - Eosinophilia, unspecified Coding Level of Care Code Est Pt Prev Care >65y(52290) Diagnoses Annual physical exam Z00.00 Pure hypercholesterolemia E78.00 Cardiomyopathy, unspecified type I42.9 Cardiomyopathy type: unspecified Nonrheumatic aortic valve insufficiency I35.1 Cardiac valve disease etiology: nonrheumatic Elevated blood pressure reading without diagnosis of hypertension R03.0 Mild anemia D64.9 Eosinophilia, unspecified type D72.10 Eosinophilia type: unspecified eosinophilia Vitamin D deficiency E55.9 Erectile dysfunction, unspecified erectile dysfunction type N52.9 Erectile dysfunction type: unspecified
[2023-04-20 10:53] VITALS: BP 130/88
== END 2023-04-20 11:00 | disposition home or self-care (01) ==
PROVIDERS: Visit Provider Internal Medicine
DX: Z00.00 Encounter for general adult medical examination without abnormal findings (principal); E78.00 Pure hypercholesterolemia, unspecified; I42.9 Cardiomyopathy, unspecified; I35.1 Nonrheumatic aortic (valve) insufficiency; R03.0 Elevated blood-pressure reading, without diagnosis of hypertension; D64.9 Anemia, unspecified; D72.10 Eosinophilia, unspecified; E55.9 Vitamin D deficiency, unspecified; N52.9 Male erectile dysfunction, unspecified
CPT/HCPCS: 99397

== ENCOUNTER 2023-05-21 08:23 | Outpatient (AMB) | payer MEDICARE, SELFPAY ==
[2023-05-21 08:26] VITALS: BP 136/80; PULSE 60; TEMP 36.6; O2SAT 98; BMI 22.4
--- NOTE | 2023-05-21 08:26 | MHC.OFFWIV ---
Intake Vital Signs 05/21/23 08:26 Height 6 ft Weight 165 lb BMI 22.4 BP 136/80 Blood Pressure Location Lt brachial Position Sitting Pulse 60 Pulse Source Pulse Oximeter Temp 98 F Temp Source Oral Pulse Oximetry (%) 98 Intake Visit Reasons: EST/possible bpressure issues/dizziness(lobby) Intake Note: pt is here for c.o dizziness since sunday and states he concerned about bp pressure and states he is not diagnosed with HTN but has been having high readings Patient Tobacco Use Status: Never used Tobacco Allergies No Known Allergies Allergy (Verified 05/21/23 08:53) Medication List - Last Reconciled 05/21/23 by Herbert Downey MD atorvastatin 10 mg PO BEDTIME 90 days omeprazole 20 mg PO DAILY sildenafil (Viagra) 100 mg PO DAILY PRN 30 days simethicone 125 mg PO BID-QID PRN Do you need a note to return to daycare/school/sports/work: Yes HPI EST/possible bpressure issues/dizziness(lobby) HPI Details 72-year-old male presents to the office for a sick visit. 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 He usually runs once a week. On Sunday after he finished the run, he started experiencing symptoms of dizziness. He was a bit unsteady but had no fall. His encouraged him to check the blood pressures and the systolic blood pressures were greater than 160, he checked the blood pressures on 2 separate occasions. Dizzy symptoms have abated but blood pressure continues to be slightly above normal. Reports no chest pains, shortness of breath. Had a full physical a month ago. No history of high blood pressure in the past. [facility] Medical History Thoracic, thoracolumbar and lumbosacral intervertebral disc disorder Erectile dysfunction Vitamin D deficiency Transient leg weakness Pure hypercholesterolemia History of bradycardia Hypertension Aortic regurgitation Cardiomyopathy Surgical History Hx of colonoscopy Family History Father Diabetes Prostate cancer Mother Dementia Social History Housing: House Are you a primary field care advocate to a significant other at home: No Do you presently have visiting nurse or other home services: No Alcohol intake: current Alcohol intake frequency: holidays/special occasions only Alcohol type: wine Patient Tobacco Use Status: Never used Tobacco e-Cigarette/Vaping Use: Never Used Second Hand Smoke Exposure: No service: No Current occupational status: retired Cognitive needs: No Hearing needs: No Vision needs: No Physical Exam Vital Signs: Last Vital Signs Temp 98 F 05/21/23 08:26 Pulse 60 05/21/23 08:26 BP 136/80 05/21/23 08:26 Pulse Ox 98 05/21/23 08:26 BMI result Body Mass Index 22.4 Const General: cooperative and healthy appearing Nutritional Appearance: well nourished Orientation/consciousness: patient oriented x3 Limitations: no limitations HEENT Head: Yes normal to inspection Eyes General: appearance normal, both eyes and all related structures Neck Neck: Yes normal visual inspection Chest Chest palpation & inspection: normal palpation of entire chest wall Resp Effort & Inspection: normal respiratory effort Neuro General: patient oriented x3 Office Procedures EKG Details: Sinus Bradycardia. NSR [id number], Complete Assessment & Plan Assessment & Plan (1) Elevated blood pressure reading without diagnosis of hypertension: Code(s): R03.0 - Elevated blood-pressure reading, without diagnosis of hypertension Plan: Lisinopril started at 5 mg a day. Pt advised to follow up with PCP. EKG revd.BW done recently revd. Orders: Orders AMB EKG-In Office Today R07.9 - Chest pain, unspecified Coding Level of Care Code Est Pt Level 4 (34922) Diagnoses Elevated blood pressure reading without diagnosis of hypertension R03.0 CPT Codes EKG - CPT: 89098-[id number], Complete ([id number])
== END 2023-05-21 09:19 | disposition home or self-care (01) ==
PROVIDERS: PCP Internal Medicine; Visit Provider Internal Medicine
DX: R03.0 Elevated blood-pressure reading, without diagnosis of hypertension (principal)
CPT/HCPCS: 93000; 99214

== ENCOUNTER 2023-05-22 13:33 | Outpatient (AMB) | payer MEDICARE, SELFPAY ==
[2023-05-22 13:42] VITALS: BP 118/80; PULSE 56; O2SAT 99; BMI 23.0
--- NOTE | 2023-05-22 13:42 | MHC.PC.OV ---
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 Accompanied by: Self / Same As Patient Allergies No Known Allergies Allergy (Verified 05/22/23 14:18) Medication List - Last Reconciled 05/22/23 by Rinku Biggs MD atorvastatin 10 mg PO BEDTIME 90 days lisinopril 5 mg PO DAILY omeprazole 20 mg PO DAILY sildenafil (Viagra) 100 mg PO DAILY PRN 30 days simethicone 125 mg PO BID-QID PRN Tobacco use date assessed: 05/22/23 Fall risk assessment: No Falls in past year Last assessed Fall Risk: 05/22/23 Dental Screening Dental Screen Date: 05/22/23 Did you have a dental visit in the last 12 months?: Yes Did you have a dental problem in the last 6 months where you did not have access to dental care?: No Was dental information given to patient?: Patient has dentist HPI [facility] F/U HPI Details Patient comes in today for follow up of his recent symptoms Relates that he has been experiencing on and off dizziness since he went running last Sunday (3 days ago) Has noticed that his blood pressure was high a few times when he was checking it frequently over the past few days States that he went to urgent care yesterday afternoon for his recurrent symptoms and his systolic BP was around 137 mm An EKG was done for further evaluation - EKG showed sinus bradycardia with 1st degree AV block; EKG was otherwise normal He also had some labs done recently, which were all within normal limits, so no additional labs were ordered Patient states that he has since gone back to the gym and worked out for about 1.5 hours yesterday with little issues His systolic BP was noted again to be at 140 mm this morning; states that he went to the gym again earlier today to work out and he's had no issues so far while he was working out States that he currently feels okay He denies any headaches Denies any chest pains, no SOB No nausea/vomiting and no abdominal pain No change in bowel habits noted [facility] Medical History Thoracic, thoracolumbar and lumbosacral intervertebral disc disorder Erectile dysfunction Vitamin D deficiency Transient leg weakness Pure hypercholesterolemia History of bradycardia Hypertension Aortic regurgitation Cardiomyopathy Surgical History Hx of colonoscopy Family History Father Diabetes Prostate cancer Mother Dementia Social History Housing: House Are you a primary transitional care liaison to a significant other at home: No Do you presently have visiting nurse or other home services: No Alcohol intake: current Alcohol intake frequency: holidays/special occasions only Alcohol type: wine Patient Tobacco Use Status: Never used Tobacco e-Cigarette/Vaping Use: Never Used Second Hand Smoke Exposure: No service: No Current occupational status: retired Cognitive needs: No Hearing needs: No Vision needs: No Questionnaire PHQ-9 Over the last 2 weeks, how often have you been bothered by any of the following problems? 1. Little interest or pleasure in doing things: not at all 2. Feeling down, depressed, or hopeless: not at all 3. Trouble falling or staying asleep, or sleeping too much: not at all 4. Feeling tired or having little energy: not at all 5. Poor appetite or overeating: not at all 6. Feeling bad about yourself - or that you are a failure or have let yourself or your family down: not at all 7. Trouble concentrating on things, such as reading the newspaper or watching television: not at all 8. Moving or speaking so slowly that other people could have noticed. Or the opposite - being so fidgety or restless that you have been moving around a lot more than usual: not at all 9. Thoughts that you would be better off or of hurting yourself in some way: not at all Total score: 0 Depression Screening Interpretation: Negative Depression Screening Done: Yes 06373 - PHQ-9 Billing: Yes Source: Developed by Drs. Tray Berman, Ramandeep Aaron, Sen Baker and colleagues, with an educational gerardo from [employer]. Thrive Questionnaire Date Thrive assessed: 05/22/23 I am a: Patient What is your living situation today?: I have a steady place to live Within the past 12 months, did the food you bought not last and you didn't have the money to get more?: Never true Within the past 12 months, did you worry whether your food would run out before you got money to buy more?: Never true Do you have trouble paying for medicines?: No Do you have trouble getting transportation to medical appointments?: No Do you have trouble paying your heating and electricity bill?: No Do you have trouble taking care of your child, family member or friend?: No Do you have trouble with day-to-day activities such as bathing, preparing meals, shopping, managing finances, etc.?: No Are you currently unemployed and looking for a job?: No Are you interested in more education?: No Please select the resources that you would like help with: None Currently or been in a relationship where the following occur: no concerns reported THRIVE Score: 0 AUDIT C Alcohol Use Questionnaire (AUDIT-C) 1. How often do you have a drink containing alcohol?: 2-4 times a month 2. How many drinks containing alcohol do you have on a typical day when you are drinking?: 3 or 4 3. How often do you have six or more drinks on one occasion?: Never Total Score: 3 Score Reviewed/Action Taken: Yes LOAN-7 AMB Questionnaire OLAN-7 Date LOAN - 7 assessed: 05/22/23 Feeling nervous, anxious, or on edge: 0 = Not at all Not being able to stop or control worryin = Not at all Worrying too much about different things: 0 = Not at all Trouble relaxin = Not at all Being so restless that it is hard to sit still: 0 = Not at all Becoming easily annoyed or irritable: 0 = Not at all Feeling afraid as if something awful might happen: 0 = Not at all Total LOAN-7 score (0-4 normal; 5-9 mild; 10-14 moderate; 15-21 severe): 0 Source: Developed by Drs. Tray Berman, Ramandeep Aaron, Sen Baker and colleagues, with an educational gerardo from [employer]. Review of Systems Const Denies chills, Denies fatigue, Denies fever(s) and Denies headache(s) ENT Denies dysphagia, Reports dizziness (over past few days - see HPI), Denies otalgia, Denies headache(s), Denies neck pain, Denies odynophagia and Denies sore throat Card Denies chest pain, Denies palpitations and Denies dyspnea Resp Denies cough, Denies dyspnea and Denies wheezing GI Denies abdominal pain, Denies constipation, Denies dysphagia, Denies heartburn, Denies diarrhea, Denies nausea, Denies odynophagia and Denies vomiting Denies dysuria, Denies nocturia and Denies urinary frequency Musc Denies back pain, Denies arthralgias and Denies neck pain Skin/Breast Denies rash Neuro Reports dizziness (over past few days - see HPI) and Denies headache(s) Endo Denies fatigue and Denies palpitations Aller/Immun Denies wheezing Physical exam (Primary Care) Vital Signs: Last Vital Signs Pulse 56 05/22/23 13:42 BP 140/80 H 05/22/23 14:40 Pulse Ox 99 05/22/23 13:42 Oxygen Delivery Method Room Air 05/22/23 13:42 BMI result Body Mass Index 23.0 Tobacco/Smoking Status: Tobacco use Status Tobacco use date assessed 05/22/23 05/22/23 13:48 Patient Tobacco Use Status Never used Tobacco 05/22/23 13:48 e-Cigarette/Vaping Use Never Used 05/22/23 13:48 PHQ-9: PHQ-9 Score PHQ-9: Total score 0 05/22/23 14:47 Depression Screening Interpretation: Negative Thrive Assessment: Date of Thrive Assessment Date Thrive assessed 05/22/23 05/22/23 13:48 Currently or been in a relationship where the following occur: no concerns reported Const General: no acute distress and alert HENMT Ears: TM's normal bilaterally and EAC's normal Throat: Yes posterior oropharynx normal and Yes tonsils normal (no TP congestion) Neck Neck: Yes no lymphadenopathy and Yes supple Thyroid: Thyroid normal Resp Auscultation: clear to auscultation bilaterally, no rales and no wheezes Cardio Rate: regular rate Rhythm: regular rhythm Heart sounds: Murmur heart sound present diastolic blowing, soft, II/ and at the left sternal border GI Palpation (GI): Soft to palpation and nontender Auscultation: normal bowel sounds General: Yes no CVA tenderness Back/Spine/Pelvis Back: no CVA tenderness Skin Rashes: no rashes Extrem General: Yes no clubbing, cyanosis or edema Assessment and Plan Assessment & Plan (1) Cardiomyopathy: Comment: Sees Dr Wilkes yearly Code(s): I42.9 - Cardiomyopathy, unspecified Qualifiers: Cardiomyopathy type: unspecified Qualified Code(s): I42.9 - Cardiomyopathy, unspecified Plan: Mostly related to his aortic valve insufficiency Has been mostly asymptomatic lately until his recent bouts of dizziness (see HPI) Repeat echocardiogram done in December 2022 revealed normal left ventricular size, with moderate concentric left ventricular hypertrophy and overall left ventricular systolic function is normal, with EF between 60 to 65%. There is grade 1 diastolic dysfunction with an impaired relaxation filling pattern and normal filling pressures. The basal inferior area is mildly hypokinetic and left atrium is mildly dilated; RV systolic function is normal. AV valve is moderated calcified and there is [id number] aortic regurgitation and mild aortic stenosis - findings are mostly stable compared to echo done on 12/28/2021 Follow-up with cardiology (Dr. Wilkes) as scheduled (2) Aortic regurgitation: Code(s): I35.1 - Nonrheumatic aortic (valve) insufficiency Qualifiers: Cardiac valve disease etiology: nonrheumatic Qualified Code(s): I35.1 - Nonrheumatic aortic (valve) insufficiency Plan: Follow up with cardiology (Dr. Wilkes) as scheduled for continuing management and surveillance Had repeat echocardiogram done in December 2022 - echo findings are mostly unchanged from the year before His recent recurrent dizziness raises some concerns regarding this although they could be due to vertigo but patient states that his dizziness does not feel like his surroundings are spinning Will have him get a repeat echocardiogram JONNY for further evaluation (3) Pure hypercholesterolemia: Code(s): E78.00 - Pure hypercholesterolemia, unspecified Plan: Reinforced low cholesterol diet Continue Atorvastatin 10 mg QD (4) Elevated blood pressure reading without diagnosis of hypertension: Code(s): R03.0 - Elevated blood-pressure reading, without diagnosis of hypertension Plan: His BP in the office today is again slightly elevated He most likely has white coat syndrome as his BP tends to be consistently better and normal when he checks it at home Reinforced low sodium diet Patient is reminded to continue checking/monitoring his BP routinely at home (5) Mild anemia: Code(s): D64.9 - Anemia, unspecified Plan: H/H are still slightly low on her recent labs but are stable - H/H = 12.9/40.2 Will continue to monitor his CBC regularly (6) Eosinophilia: Code(s): D72.10 - Eosinophilia, unspecified Qualifiers: Eosinophilia type: unspecified eosinophilia Qualified Code(s): D72.10 - Eosinophilia, unspecified Plan: His eosinophil count/percentage has been noted to be slightly elevated persistently over the past few years Patient is currently asymptomatic Will need to continue monitoring this closely and will need further evaluation if this progresses Plan Follow up in 3 months Orders: Orders CA echo transthoracic complete 05/22/23 R01.1 - Cardiac murmur, unspecified Coding Level of Care Code Est Pt Level 3 (96246) Diagnoses Cardiomyopathy, unspecified type I42.9 Cardiomyopathy type: unspecified Nonrheumatic aortic valve insufficiency I35.1 Cardiac valve disease etiology: nonrheumatic Pure hypercholesterolemia E78.00 Elevated blood pressure reading without diagnosis of hypertension R03.0 Mild anemia D64.9 Eosinophilia, unspecified type D72.10 Eosinophilia type: unspecified eosinophilia
[2023-05-22 14:40] VITALS: BP 140/80
== END 2023-05-22 14:50 | disposition home or self-care (01) ==
PROVIDERS: PCP Internal Medicine; Visit Provider Internal Medicine
DX: I42.9 Cardiomyopathy, unspecified (principal); I35.1 Nonrheumatic aortic (valve) insufficiency; E78.00 Pure hypercholesterolemia, unspecified; R03.0 Elevated blood-pressure reading, without diagnosis of hypertension; D64.9 Anemia, unspecified; D72.10 Eosinophilia, unspecified
CPT/HCPCS: 99213

== ENCOUNTER → 2023-06-08 12:49 | Outpatient (REF) | payer MEDICARE, SELFPAY ==
--- NOTE | 2023-06-08 12:51 | CA_ITS ---
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 There is mildly increased left ventricular wall thickness. The visually estimated ejection fraction is between 60-65%. There is no evidence of regional wall motion abnormalities. Diastolic function is normal for age. Normal strain -20%. - Mildly increased right ventricular cavity size. There is normal right ventricular systolic function. - The left atrium is moderately dilated. - There is mild aortic valve stenosis. There is mild to moderate aortic valve regurgitation. - There is mild dilatation of the sinuses of Valsalva measuring 4.32 cm and mild dilatation of the ascending aorta measuring 4.00 cm. - There is a bicuspid aortic valve. The raphe is between the right coronary cusp and non coronary cusp. Findings Left Ventricle Normal left ventricular size and systolic function. There is mildly increased left ventricular wall thickness. The visually estimated ejection fraction is between 60-65%. There is no evidence of regional wall motion abnormalities. Diastolic function is normal for age. Normal strain -20%. Right Ventricle Mildly increased right ventricular cavity size. There is normal right ventricular systolic function. Atria The left atrium is moderately dilated. Aortic Valve There is a bicuspid aortic valve. The raphe is between the right coronary cusp and non coronary cusp. There is moderate calcification of the aortic valve. There is mild aortic valve stenosis. There is mild to moderate aortic valve regurgitation. Mitral Valve Normal mitral valve structure and function. There is trace mitral valve regurgitation. There is no mitral valve stenosis. Pulmonic Valve Normal pulmonic valve structure and function. Tricuspid Valve Normal tricuspid valve structure and function. There is no tricuspid valve regurgitation. Tricuspid regurgitation envelope is inadequate for calculation of right ventricular systolic pressure. Normal right atrial pressure. Great Vessels There is mild dilatation of the sinuses of Valsalva measuring 4.32 cm and mild dilatation of the ascending aorta measuring 4.00 cm. The visualized portions of the pulmonary artery and branches are normal. Venous The inferior vena cava is normal in size and collapses greater than 50% with inspiration. Pericardium/Pleural There is no evidence of pericardial effusion. Prior Study Comparison No prior study available for comparison. Measurements 2D Linear Measurements IVSd: 1.16 0.6-0.9/0.6-1.0 cm LVIDd: 3.96 3.9-5.3/4.2-5.9 cm LVIDd Index: 2.00 2.4-3.2/2.2-3.1 cm/m2 LVIDs: 2.71 2.0-3.6 cm LVPWd: 1.03 0.7-1.1 cm LA Diam: 3.20 2.7-3.8/3.0-4.0 cm LAIDs Index: 1.62 1.5-2.3 cm/m2 LV Mass: 177.33 67-162/88-224 g LV Mass Index: 89.56 43-95/49-115 g/m2 LVOT Diam: 2.50 3.0+(-)1.3 cm 2D Systolic Function EF 4C: 65.30 >55% EF 2C: 62.20 >55% EF BiP: 64.20 >55% Mitral Valve MV Pk E: 0.57 MV PK A: 0.51 MV Decel Time: 227.00 E/A: 1.10 E'Lateral: 7.72 E'Medial: 5.55 E/E' Med: 10.30 E/E' Lat: 7.40 PHT: 66.00 MVA PHT: 3.33 [place]: 2.53 Aortic Valve AoV Pk Mitesh: 2.44 AoV Mn Mitesh: 1.72 AoV VTI: 0.58 AoV Pk Grad: 24.00 Aov Mn Grad: 13.00 STEFANIE Cont.VTI: 3.02 AI Pk Mitesh: 3.95 AI VTI: 3.05 AI Hill: 1.68 LVOT LVOT Pk Mitehs: 1.46 LVOT Mn Mitesh: 0.95 LVOT VTI: 0.36 LVOT Pk Grad: 9.00 LVOT Mn Grad: 4.00 LVOT Diam: 2.50 LVOT Area: 4.91 Diastolic Function MV Pk E: 0.57 MV Pk A: 0.51 E/A: 1.10 E'Medial: 5.55 E/E' Med: 10.30 E' Laterial: 7.72 E/E' Lat: 7.40 Right Ventricle TAPSE (mm): 26.20 TVS' Mitesh: 13.10 Great Vessels Aorta Sinus of Valsalva: 4.32 2.0-3.[address] Ridge: 3.07 1.7-3.4 cm Ao Asc: 4.00 2.1-3.4 cm Ao Arch: 3.20 Updated in Other Vendor System with Status of Final Patrice Watkins MD electronically signed on 06/09/2023 12:07:32 PM with status of Final
== END ==
LOC: HO.CARD 12:49
PROVIDERS: PCP Internal Medicine; Visit Provider Internal Medicine
DX: R01.1 Cardiac murmur, unspecified (principal)
CPT/HCPCS: 93306; 93356

== ENCOUNTER → 2023-06-08 12:51 | Outpatient (BNV) | payer MEDICARE, SELFPAY | PROVIDERS: PCP Internal Medicine; Visit Provider Internal Medicine Cardiovascular Disease | DX: I35.2 Nonrheumatic aortic (valve) stenosis with insufficiency (principal) | CPT/HCPCS: 93306 ==

== ENCOUNTER 2023-08-24 10:49 | Outpatient (AMB) | payer MEDICARE, SELFPAY ==
--- NOTE | 2023-08-24 10:56 | A.OFFPC_ITS ---
Vital Signs 08/24/23 10:57 Height 6 ft Weight 166 lb 4 oz BMI 22.5 BP 118/62 Blood Pressure Location Lt brachial Position Sitting Pulse 52 Pulse Source Pulse Oximeter Pulse Oximetry (%) 98 Oxygen Delivery Method Room Air Intake Visit Reasons: HTN, cardiac murmur Intake Note: Patient is here to follow up on HTN, Cardiac Murmur. 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 Arc: Not Required per policy Accompanied by: Self / Same As Patient Allergies No Known Allergies Allergy (Verified 08/24/23 11:37) Medication List - Last Reconciled 08/24/23 by Rinku Biggs MD atorvastatin 10 mg PO BEDTIME 90 days lisinopril 5 mg PO DAILY 90 days omeprazole 20 mg PO DAILY sildenafil (Viagra) 100 mg PO DAILY PRN 30 days Tobacco use date assessed: 08/24/23 Fall risk assessment: No Falls in past year Last assessed Fall Risk: 08/24/23 Dental Screening Dental Screen Date: 05/22/23 HPI HTN, cardiac murmur HPI Details Patient comes in today for follow up of his recent echocardiogram report Patient states that he feels okay He denies any headaches or dizziness - states that he has not had any of the dizzy spells that he had a few months ago lately Denies any chest pains, no SOB No nausea/vomiting, no abdominal pain No change in bowel habits noted [facility] Medical History (Updated 08/26/23 @ 21:44 by Rinku Biggs MD) Essential hypertension Thoracic, thoracolumbar and lumbosacral intervertebral disc disorder Erectile dysfunction Vitamin D deficiency Transient leg weakness Pure hypercholesterolemia History of bradycardia Hypertension Aortic regurgitation Cardiomyopathy Surgical History Hx of colonoscopy Family History Father Diabetes Prostate cancer Mother Dementia Social History Housing: House Are you a primary healthcare science specialist to a significant other at home: No Do you presently have visiting nurse or other home services: No Alcohol intake: current Alcohol intake frequency: holidays/special occasions only Alcohol type: wine Patient Tobacco Use Status: Never used Tobacco e-Cigarette/Vaping Use: Never Used Second Hand Smoke Exposure: No service: No Current occupational status: retired Cognitive needs: No Hearing needs: No Vision needs: No Questionnaire PHQ-9 Over the last 2 weeks, how often have you been bothered by any of the following problems? Depression Screening Interpretation: Negative Depression Screening Done: Yes Source: Developed by Drs. Tray Berman, Ramandeep Aaron, Sen Baker and colleagues, with an educational gerardo from [employer]. Thrive Questionnaire Date Thrive assessed: 05/22/23 Currently or been in a relationship where the following occur: no concerns reported THRIVE Score: 0 LOAN-7 AMB Questionnaire LOAN-7 Date LOAN - 7 assessed: 05/22/23 Source: Developed by Drs. Tray Berman, Ramandeep Aaron, Sen Baker and colleagues, with an educational gerardo from [employer]. Review of Systems Const Denies chills, Denies fatigue, Denies fever(s) and Denies headache(s) ENT Denies dysphagia, Denies dizziness, Denies otalgia, Denies headache(s), Denies neck pain, Denies odynophagia and Denies sore throat Card Denies chest pain, Denies palpitations and Denies dyspnea Resp Denies cough, Denies dyspnea and Denies wheezing GI Denies abdominal pain, Denies constipation, Denies dysphagia, Denies heartburn, Denies diarrhea, Denies nausea, Denies odynophagia and Denies vomiting Denies dysuria, Denies nocturia and Denies urinary frequency Musc Denies back pain, Denies arthralgias and Denies neck pain Skin/Breast Denies rash Neuro Denies dizziness and Denies headache(s) Endo Denies fatigue and Denies palpitations Aller/Immun Denies wheezing Physical exam (Primary Care) Vital Signs: Last Vital Signs Pulse 52 08/24/23 10:57 BP 118/62 08/24/23 10:57 Pulse Ox 98 08/24/23 10:57 Oxygen Delivery Method Room Air 08/24/23 10:57 BMI result Body Mass Index 22.5 Tobacco/Smoking Status: Tobacco use Status Tobacco use date assessed 08/24/23 08/24/23 11:02 Patient Tobacco Use Status Never used Tobacco 08/24/23 11:02 e-Cigarette/Vaping Use Never Used 08/24/23 11:02 Depression Screening Interpretation: Negative Thrive Assessment: Date of Thrive Assessment Date Thrive assessed 05/22/23 08/24/23 11:02 Currently or been in a relationship where the following occur: no concerns reported Const General: no acute distress and alert HENMT Ears: TM's normal bilaterally and EAC's normal Throat: Yes posterior oropharynx normal and Yes tonsils normal (no TP congestion) Neck Neck: Yes no lymphadenopathy and Yes supple Thyroid: Thyroid normal Resp Auscultation: clear to auscultation bilaterally, no rales and no wheezes Cardio Rate: regular rate Rhythm: regular rhythm Heart sounds: Murmur heart sound present diastolic blowing, soft, II/ and at the left sternal border GI Palpation (GI): Soft to palpation and nontender Auscultation: normal bowel sounds General: Yes no CVA tenderness Back/Spine/Pelvis Back: no CVA tenderness Skin Rashes: no rashes Extrem General: Yes no clubbing, cyanosis or edema Assessment and Plan Assessment & Plan (1) Cardiomyopathy: Comment: Sees Dr Wilkes yearly Code(s): I42.9 - Cardiomyopathy, unspecified Qualifiers: Cardiomyopathy type: unspecified Qualified Code(s): I42.9 - Cardiomyopathy, unspecified Plan: Mostly related to his aortic valve insufficiency He has been mostly asymptomatic until his brief bouts of dizziness a few months ago - these have since mostly resolved and he's had no recurrence of these symptoms lately Repeat echocardiogram done in December 2022 revealed normal left ventricular size, with moderate concentric left ventricular hypertrophy and overall left ventricular systolic function is normal, with EF between 60 to 65%. There is grade 1 diastolic dysfunction with an impaired relaxation filling pattern and normal filling pressures. The basal inferior area is mildly hypokinetic and left atrium is mildly dilated; RV systolic function is normal. AV valve is moderated calcified and there is [id number] aortic regurgitation and mild aortic stenosis - findings are mostly stable compared to echo done on 12/28/2021 Follow-up with cardiology (Dr. Wilkes) as scheduled (2) Aortic regurgitation: Code(s): I35.1 - Nonrheumatic aortic (valve) insufficiency Qualifiers: Cardiac valve disease etiology: nonrheumatic Qualified Code(s): I35.1 - Nonrheumatic aortic (valve) insufficiency Plan: Had repeat echocardiogram done in December 2022 - echo findings are mostly unchanged from the year before His recent recurrent dizziness raised concerns regarding this; it was suggested that they could be due to vertigo but patient states that his dizziness did not feel like his surroundings are spinning We had him go for a repeat echocardiogram for further evaluation - echo came back mostly similar to his December 2022 echo findings - echo still showed normal left ventricular size and systolic function, with a mildly increased left ventricular wall thickness. The visually estimated ejection fraction is still between 60-65% and there is no evidence of any regional wall motion abnormalities. Diastolic function is also normal for age. The right ventricular cavity size is mildly increased but right ventricular systolic function is normal. The left atrium is moderately dilated. There is mild aortic valve stenosis and mild to moderate aortic valve regurgitation. There is mild dilatation of the sinuses of Valsalva measuring 4.32 cm and mild dilatation of the ascending aorta measuring 4.00 cm. There is also a bicuspid aortic valve noted Follow up with cardiology (Dr. Wilkes) as scheduled for continuing management and surveillance (3) Essential hypertension: Code(s): I10 - Essential (primary) hypertension Plan: Reinforced low sodium diet- goal is systolic BP of at least 130 mm or less, in light of the mild dilatation of his ascending aorta seen on his recent echo He has been started on Lisinopril 5 mg QD when he went to the walk-in clinic about 3 months ago and was noted to have a very high BP at the time Continue Lisinopril 5 mg QD He is reminded to continue monitoring his blood pressure regularly (4) Pure hypercholesterolemia: Code(s): E78.00 - Pure hypercholesterolemia, unspecified Plan: Reinforced low cholesterol diet Continue Atorvastatin 10 mg QD (5) Mild anemia: Code(s): D64.9 - Anemia, unspecified Plan: His H/H were still slightly low on his recent labs a few months ago but are stable - H/H = 12.9/40.2 Will continue to monitor his CBC regularly (6) Eosinophilia: Code(s): D72.10 - Eosinophilia, unspecified Qualifiers: Eosinophilia type: unspecified eosinophilia Qualified Code(s): D72.10 - Eosinophilia, unspecified Plan: His eosinophil count/percentage has been noted to be slightly elevated persistently over the past few years Patient is currently asymptomatic Will need to continue monitoring this closely and will need further evaluation if this progresses Plan Follow up as scheduled in October 2023 Coding Level of Care Code Est Pt Level 3 (09615) Diagnoses Cardiomyopathy, unspecified type I42.9 Cardiomyopathy type: unspecified Nonrheumatic aortic valve insufficiency I35.1 Cardiac valve disease etiology: nonrheumatic Essential hypertension I10 Pure hypercholesterolemia E78.00 Mild anemia D64.9 Eosinophilia, unspecified type D72.10 Eosinophilia type: unspecified eosinophilia
[2023-08-24 10:57] VITALS: BP 118/62; PULSE 52; O2SAT 98; BMI 22.5
== END 2023-08-24 11:41 | disposition home or self-care (01) ==
PROVIDERS: PCP Internal Medicine; Visit Provider Internal Medicine
DX: I42.9 Cardiomyopathy, unspecified (principal); I35.1 Nonrheumatic aortic (valve) insufficiency; I10 Essential (primary) hypertension; E78.00 Pure hypercholesterolemia, unspecified; D64.9 Anemia, unspecified; D72.10 Eosinophilia, unspecified
CPT/HCPCS: 99213

== ENCOUNTER 2023-10-17 06:07 | Outpatient (REF) | payer MEDICARE, SELFPAY ==
[2023-10-17 06:25] LABS: MANUAL DIFF FLAG NO
[2023-10-17 07:20] LABS: Basophils Percent Auto 0.5 % (0-2); Eosinophils Absolute Auto 0.3 X10*3/uL (0.0-0.4); Eosinophils Percent Auto 4.7 % (0-4); Hematocrit 38.6 % (42.0-52.0); Hemoglobin 12.6 g/dl (14.0-18.0); Imm Gran Abs Auto 0.02 X10*3/uL (0.00-0.03); Imm Gran Pct Auto 0.3 % (0.0-0.4); Lymphocytes Absolute Auto 2.5 X10*3/uL (1.2-4.9); Mean Corpuscular HGB Conc 32.6 g/dl (31.0-36.0); Mean Corpuscular Hemoglobin 30.2 pg (27.0-33.0); Mean Corpuscular Volume 92.6 fL (80.0-98.0); Mean Platelet Volume 9.9 fL (9.4-12.4); Monocytes Absolute Auto 0.5 X10*3/uL (0.1-1.2); Neutrophils Absolute Auto 2.7 x10*3/uL (2.0-8.3); Neutrophils Percent Auto 44.5 % (45-73); Platelet Count 264 X10*3/uL (160-400); Red Blood Count 4.17 X10*6/uL (4.60-5.80); Red Cell Distribution Width 12.7 % (11.0-16.0)
[2023-10-17 07:23] LABS: Eos%MD 4.8 %; Eosinophils Absolute Auto 0.3 X10*3/uL (0.0-0.4); WBCANC 6.1 X10*3/uL
[2023-10-17 07:53] LABS: Alanine Aminotransferase 16 U/L (0-40); Alkaline Phosphatase 66 U/L (39-117); Anion Gap 10 (12-20); Aspartate Amino Transferase 26 U/L (5-37); Bilirubin Total 0.5 mg/dL (0.0-1.0); Blood Urea Nitrogen 25 mg/dL (9-16); Calcium 9.7 mg/dL (8.4-10.2); Carbon Dioxide 27 mmol/L (22-29); Chloride 108 mmol/L (96-108); Cholesterol 169 mg/dL (<200); Estimated Glomerular Filt Rate 53; Glucose Fasting 101 mg/dL (60-99); HDL Cholesterol 69 mg/dL (>40); Iron 65 mcg/dL (45-160); LDL Cholesterol Calculated 91 mg/dL (<100); Percent Iron Saturation 28 % (15-50); Potassium 4.9 mmol/L (3.3-5.1); Sodium 140 mmol/L (135-145); Total Iron Binding Capacity 232 mcg/dL (228-428); Total Protein 7.3 g/dL (6.5-8.0); Triglycerides 46 mg/dL (<150); Unsaturated Iron Binding 167 ug/dL
[2023-10-17 08:15] LABS: Folate 12.1 ng/mL (> or = 4.0); Vitamin B12 437 pg/mL (200-900)
[2023-10-19 03:48] LABS: Erythropoietin (EPO) 5.2 mIU/mL (2.6-18.5)
[2023-10-19 13:08] LABS: Hematocrit 38.6 % (38.5-50.0); Hemoglobin 12.8 g/dL (13.2-17.1); MCH 30.5 pg (27.0-33.0); MCV 91.9 fL (80.0-100.0); RDW 12.1 % (11.0-15.0)
== END 2023-10-17 06:08 | disposition home or self-care (01) ==
LOC: HO.LAB 06:07
PROVIDERS: PCP Internal Medicine; Visit Provider Internal Medicine
DX: D64.9 Anemia, unspecified (principal); E78.00 Pure hypercholesterolemia, unspecified; D50.9 Iron deficiency anemia, unspecified; D72.10 Eosinophilia, unspecified; E53.8 Deficiency of other specified B group vitamins
CPT/HCPCS: 36415; 80053; 80061; 82607; 82668; 82746; 83020; 83540; 85014; 85018; 85025; 85041

== ENCOUNTER 2023-10-22 09:47 | Outpatient (AMB) | payer MEDICARE, SELFPAY ==
--- NOTE | 2023-10-22 09:49 | MHC.PC.OV ---
Vital Signs 10/22/23 09:50 Height 6 ft Weight 163 lb 4 oz BMI 22.1 BP 100/64 Blood Pressure Location Lt brachial Position Sitting Pulse 66 Pulse Source Pulse Oximeter Pulse Oximetry (%) 97 Oxygen Delivery Method Room Air Intake Visit Reasons: hyperlipidemia, CAD, elevated BP, anemia Intake Note: Patient is here to follow up on HLD, CAD, HTN, Anemia. 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 Required: No Registrar College Or University: Not Required per policy Accompanied by: Self / Same As Patient Allergies No Known Allergies Allergy (Verified 10/22/23 10:30) Medication List - Last Reconciled 10/22/23 by Rinku Biggs MD atorvastatin 10 mg PO BEDTIME 90 days lisinopril 5 mg PO DAILY 90 days omeprazole 20 mg PO DAILY sildenafil (Viagra) 100 mg PO DAILY PRN 30 days Tobacco use date assessed: 10/22/23 Fall risk assessment: No Falls in past year Last assessed Fall Risk: 10/22/23 Dental Screening Dental Screen Date: 05/22/23 HPI hyperlipidemia, CAD, elevated BP, anemia HPI Details Patient comes in today for his follow up visit States that he feels okay He denies any headaches or dizziness Denies any chest pains, no SOB No nausea/vomiting, no abdominal pain although he has noticed frequent abdominal (epigastric) discomfort when he wakes up in the morning lately States that he has not really changed anything with his diet and always drinks a glass of water at night before he goes to bed No change in bowel habits noted He had his follow up labs done last week - to discuss his results [facility] Medical History Essential hypertension Thoracic, thoracolumbar and lumbosacral intervertebral disc disorder Erectile dysfunction Vitamin D deficiency Transient leg weakness Pure hypercholesterolemia History of bradycardia Hypertension Aortic regurgitation Cardiomyopathy Surgical History Hx of colonoscopy Family History Father Diabetes Prostate cancer Mother Dementia Social History Housing: House Are you a primary medicare compliance auditor to a significant other at home: No Do you presently have visiting nurse or other home services: No Alcohol intake: current Alcohol intake frequency: holidays/special occasions only Alcohol type: wine Patient Tobacco Use Status: Never used Tobacco e-Cigarette/Vaping Use: Never Used Second Hand Smoke Exposure: No service: No Current occupational status: retired Cognitive needs: No Hearing needs: No Vision needs: No Questionnaire Thrive Questionnaire Date Thrive assessed: 05/22/23 LOAN-7 AMB Questionnaire LOAN-7 Date LOAN - 7 assessed: 05/22/23 Source: Developed by Drs. Tray Berman, Ramandeep Aaron, Sen Baker and colleagues, with an educational gerardo from [employer]. Review of Systems Const Denies chills, Denies fatigue, Denies fever(s) and Denies headache(s) ENT Denies dysphagia, Denies dizziness, Denies otalgia, Denies headache(s), Denies neck pain, Denies odynophagia and Denies sore throat Card Denies chest pain, Denies palpitations and Denies dyspnea Resp Denies cough, Denies dyspnea and Denies wheezing GI Denies abdominal pain, Denies constipation, Denies dysphagia, Denies heartburn, Denies diarrhea, Denies nausea, Denies odynophagia and Denies vomiting Denies dysuria, Denies nocturia and Denies urinary frequency Musc Denies back pain, Denies arthralgias and Denies neck pain Skin/Breast Denies rash Neuro Denies dizziness and Denies headache(s) Endo Denies fatigue and Denies palpitations Aller/Immun Denies wheezing Physical exam (Primary Care) Vital Signs: Last Vital Signs Pulse 66 10/22/23 09:50 BP 100/64 10/22/23 09:50 Pulse Ox 97 10/22/23 09:50 Oxygen Delivery Method Room Air 10/22/23 09:50 BMI result Body Mass Index 22.1 Tobacco/Smoking Status: Tobacco use Status Tobacco use date assessed 10/22/23 10/22/23 09:54 Patient Tobacco Use Status Never used Tobacco 10/22/23 09:54 e-Cigarette/Vaping Use Never Used 10/22/23 09:54 Thrive Assessment: Date of Thrive Assessment Date Thrive assessed 05/22/23 10/22/23 09:54 Const General: no acute distress and alert HENMT Ears: TM's normal bilaterally and EAC's normal Throat: Yes posterior oropharynx normal and Yes tonsils normal (no TP congestion) Neck Neck: Yes no lymphadenopathy and Yes supple Thyroid: Thyroid normal Resp Auscultation: clear to auscultation bilaterally, no rales and no wheezes Cardio Rate: regular rate Rhythm: regular rhythm Heart sounds: Murmur heart sound present diastolic blowing, soft, II/ and at the left sternal border GI Palpation (GI): Soft to palpation and nontender Auscultation: normal bowel sounds General: Yes no CVA tenderness Back/Spine/Pelvis Back: no CVA tenderness Thoracic/Lumbar Spine: No lumbar spinal tenderness Skin Rashes: no rashes Extrem General: Yes no clubbing, cyanosis or edema Results Reviewed Results Reviewed: Laboratory Tests 04/14/23 04/14/23 10/17/23 07:14 07:15 06:23 WBC 6.5 6.0 Hgb 12.9 L 12.6 L Hct 40.2 L 38.6 L Plt Count 225 264 Sodium 141 140 Potassium 4.2 4.9 Creatinine 1.10 1.33 Estimated GFR > 60 53 Fasting Glucose 93 101 H Calcium 9.4 9.7 Iron 65 TIBC 232 % Saturation 28 Erythropoietin 5.2 AST 34 26 ALT 19 16 Triglycerides 63 46 Cholesterol 177 169 LDL Cholesterol, Calc 91 91 HDL Cholesterol 74 69 Prostate Specific Ag 0.38 Vitamin B12 437 25-OH Vitamin D Total 31.8 TSH 3.44 Ur Specific [place] 1.025 Urine Protein Negative Urine Glucose (UA) Negative Urine Blood Negative Urine Nitrite Negative Ur Leukocyte Esterase Negative Assessment and Plan Assessment & Plan (1) Cardiomyopathy: Comment: Sees Dr Wilkes yearly for cardiology follow up Code(s): I42.9 - Cardiomyopathy, unspecified Qualifiers: Cardiomyopathy type: unspecified Qualified Code(s): I42.9 - Cardiomyopathy, unspecified Plan: Mostly related to his aortic valve insufficiency He has been mostly asymptomatic until his brief bouts of dizziness a few months ago - these have since mostly resolved and he's had no recurrence of these symptoms lately Echocardiogram done on 06/08/2023 revealed (+) normal left ventricular size and systolic function, with mildly increased left ventricular wall thickness and the visually estimated ejection fraction is between 60-65%. There is no evidence of regional wall motion abnormalities; diastolic function is normal for age, There is also a mildly increased right ventricular cavity size, with normal right ventricular systolic function. The left atrium is moderately dilated and there is mild aortic valve stenosis, (+) mild to moderate aortic valve regurgitation and mild dilatation of the sinuses of Valsalva measuring 4.32 cm and mild dilatation of the ascending aorta measuring 4.00 cm. There is a bicuspid aortic valve and the raphe is between the right coronary cusp and non coronary cusp. Echocardiogram done in December 2022 revealed normal left ventricular size, with moderate concentric left ventricular hypertrophy and overall left ventricular systolic function is normal, with EF between 60 to 65%. There was grade 1 diastolic dysfunction with an impaired relaxation filling pattern and normal filling pressures. The basal inferior area was then mildly hypokinetic and left atrium was mildly dilated; RV systolic function is normal. AV valve is moderated calcified and there is [id number] aortic regurgitation and mild aortic stenosis - findings are mostly stable compared to echo done on 12/28/2021 Follow-up with cardiology (Dr. Wilkes) as scheduled (2) Aortic regurgitation: Code(s): I35.1 - Nonrheumatic aortic (valve) insufficiency Qualifiers: Cardiac valve disease etiology: nonrheumatic Qualified Code(s): I35.1 - Nonrheumatic aortic (valve) insufficiency Plan: (+) mild to moderate aortic valve regurgitation seen on his most recent echocardiogram in May 2023, with mild aortic valve stenosis - these are mostly similar to his echo findings in December 2022 and previous echos Follow up with cardiology (Dr. Wilkes) as scheduled for continuing management and surveillance (3) Essential hypertension: Code(s): I10 - Essential (primary) hypertension Plan: Reinforced low sodium diet- goal is systolic BP of at least 130 mm or less, in light of the mild dilatation of his ascending aorta seen on his recent echo Continue Lisinopril 5 mg QD He is reminded to continue monitoring his blood pressure regularly (4) Pure hypercholesterolemia: Code(s): E78.00 - Pure hypercholesterolemia, unspecified Plan: Results of his labs done a few days ago reviewed and discussed with patient Reinforced low cholesterol diet Continue Atorvastatin 10 mg QD Will recheck his labs and fasting lipids in 6 months for follow up (5) Mild anemia: Code(s): D64.9 - Anemia, unspecified Plan: His H/H were still slightly low on his recent labs but remain stable - H/H = 12.6/38.6 Will continue to monitor his CBC regularly The results of his Hgb electrophoresis done a few days ago is still pending at this time (6) Eosinophilia: Code(s): D72.10 - Eosinophilia, unspecified Qualifiers: Eosinophilia type: unspecified eosinophilia Qualified Code(s): D72.10 - Eosinophilia, unspecified Plan: His eosinophil count/percentage has been noted to be slightly elevated persistently over the past few years although it has decreased slightly on his recent labs Patient is currently asymptomatic Will need to continue monitoring this closely and will need further evaluation if this progresses Plan To return as scheduled in 6 months for his annual physical examination Orders: Orders Complete Blood Count Auto Diff 04/14/24 D64.9 - Anemia, unspecified Comprehensive [place]. Panel Fast 04/14/24 E78.00 - Pure hypercholesterolemia, unspecified Lipid Panel 04/14/24 E78.00 - Pure hypercholesterolemia, unspecified UA CC w/rflx Micro + Cult 04/14/24 R30.0 - Dysuria TSH reflex Free T4 04/14/24 E78.00 - Pure hypercholesterolemia, unspecified Vitamin D 25-OH Total 04/14/24 E55.9 - Vitamin D deficiency, unspecified Coding Level of Care Code Est Pt Level 4 (23850) Complex EM visit Add On [id number] Diagnoses Cardiomyopathy, unspecified type I42.9 Cardiomyopathy type: unspecified Nonrheumatic aortic valve insufficiency I35.1 Cardiac valve disease etiology: nonrheumatic Essential hypertension I10 Pure hypercholesterolemia E78.00 Mild anemia D64.9 Eosinophilia, unspecified type D72.10 Eosinophilia type: unspecified eosinophilia
[2023-10-22 09:50] VITALS: BP 100/64; PULSE 66; O2SAT 97; BMI 22.1
== END 2023-10-22 10:31 | disposition home or self-care (01) ==
PROVIDERS: PCP Internal Medicine; Visit Provider Internal Medicine
DX: I42.9 Cardiomyopathy, unspecified (principal); I35.1 Nonrheumatic aortic (valve) insufficiency; I10 Essential (primary) hypertension; E78.00 Pure hypercholesterolemia, unspecified; D64.9 Anemia, unspecified; D72.10 Eosinophilia, unspecified
CPT/HCPCS: 99214; G2211

== ENCOUNTER 2024-04-14 06:09 | Outpatient (REF) | payer MEDICARE, SELFPAY ==
[2024-04-14 06:31] LABS: MANUAL DIFF FLAG NO
[2024-04-14 07:45] LABS: Basophils Percent Auto 0.6 % (0-2); Eosinophils Absolute Auto 0.3 X10*3/uL (0.0-0.4); Eosinophils Percent Auto 4.2 % (0-4); Hemoglobin 12.5 g/dl (14.0-18.0); Imm Gran Abs Auto 0.02 X10*3/uL (0.00-0.03); Imm Gran Pct Auto 0.3 % (0.0-0.4); Lymphocytes Absolute Auto 2.9 X10*3/uL (1.2-4.9); Lymphocytes Percent Auto 47.3 % (20-40); Mean Corpuscular HGB Conc 32.1 g/dl (31.0-36.0); Mean Corpuscular Hemoglobin 29.6 pg (27.0-33.0); Mean Corpuscular Volume 92.4 fL (80.0-98.0); Mean Platelet Volume 9.7 fL (9.4-12.4); Monocytes Absolute Auto 0.6 X10*3/uL (0.1-1.2); Monocytes Percent Auto 9.3 % (2-11); Neutrophils Absolute Auto 2.4 x10*3/uL (2.0-8.3); Neutrophils Percent Auto 38.3 % (45-73); Platelet Count 229 X10*3/uL (160-400); Red Blood Count 4.22 X10*6/uL (4.60-5.80); Red Cell Distribution Width 12.5 % (11.0-16.0); White Blood Count 6.2 X10*3/uL (4.8-10.8)
[2024-04-14 08:25] LABS: Appearance Urine Clear; Color Urine Yellow; Glucose Urine UA Negative (Negative); Leukocyte Esterase Urine Negative (Negative); Nitrite Urine Negative (Negative); PH 5.5 (5.0-9.0); Specific Gravity - Urine 1.025 (1.005-1.025); Urine Blood Negative (Negative); Urine Ketones Negative (Negative); Urine Protein Negative (Neg-Trace)
[2024-04-14 13:47] LABS: Alanine Aminotransferase 25 U/L (0-40); Alkaline Phosphatase 60 U/L (39-117); Anion Gap 12 (12-20); Aspartate Amino Transferase 38 U/L (5-37); Bilirubin Total 0.7 mg/dL (0.0-1.0); Blood Urea Nitrogen 32 mg/dL (9-16); Carbon Dioxide 26 mmol/L (22-29); Chloride 108 mmol/L (96-108); Cholesterol 184 mg/dL (<200); Estimated Glomerular Filt Rate 59; Glucose Fasting 101 mg/dL (60-99); HDL Cholesterol 71 mg/dL (>40); LDL Cholesterol Calculated 99 mg/dL (<100); Sodium 142 mmol/L (135-145); Total Protein 7.5 g/dL (6.5-8.0); Triglycerides 70 mg/dL (<150)
[2024-04-14 14:20] LABS: TSH reflex Free T4 3.44 uIU/mL (0.32-4.0)
== END 2024-04-14 06:10 | disposition home or self-care (01) ==
LOC: HO.LAB 06:09
PROVIDERS: PCP Internal Medicine; Visit Provider Internal Medicine
DX: E78.00 Pure hypercholesterolemia, unspecified (principal); D64.9 Anemia, unspecified; R30.0 Dysuria; E55.9 Vitamin D deficiency, unspecified
CPT/HCPCS: 36415; 80053; 80061; 81003; 82306; 84443; 85025

== ENCOUNTER 2024-04-21 12:23 | Outpatient (AMB) | payer MEDICARE, SELFPAY ==
[2024-04-21 12:36] VITALS: BP 110/72; PULSE 58; O2SAT 97; BMI 22.9
--- NOTE | 2024-04-21 12:36 | MHC.PC.OV ---
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 Accompanied by: Self / Same As Patient Allergies No Known Allergies Allergy (Verified 04/21/24 13:02) Medication List - Last Reconciled 04/21/24 by Rinku Biggs MD atorvastatin 10 mg PO BEDTIME 90 days lisinopril 5 mg PO DAILY 90 days omeprazole 20 mg PO DAILY sildenafil (Viagra) 100 mg PO DAILY PRN 30 days Tobacco use date assessed: 04/21/24 Fall risk assessment: No Falls in past year Last assessed Fall Risk: 04/21/24 Dental Screening Dental Screen Date: 04/21/24 Did you have a dental visit in the last 12 months?: Yes Did you have a dental problem in the last 6 months where you did not have access to dental care?: No Was dental information given to patient?: Patient has dentist HPI Annual exam HPI Details Patient comes in today for his annual physical examination States that he feels okay Reports that he continues to work out and exercise regularly without any issues or problems He denies any headaches or dizziness Denies any chest pains, no SOB No nausea/vomiting, no abdominal pain No change in bowel habits noted Denies any acute urinary symptoms Needs his Sildenafil Rx refilled He had his follow up labs done last week - to discuss his results He will be due for his repeat colonoscopy next year (2024) PFSH Medical History Essential hypertension Thoracic, thoracolumbar and lumbosacral intervertebral disc disorder Erectile dysfunction Vitamin D deficiency Transient leg weakness Pure hypercholesterolemia History of bradycardia Hypertension Aortic regurgitation Cardiomyopathy Surgical History Hx of colonoscopy Family History Father Diabetes Prostate cancer Mother Dementia Social History Housing: House Are you a primary home day care provider to a significant other at home: No Do you presently have visiting nurse or other home services: No Alcohol intake: current Alcohol intake frequency: holidays/special occasions only Alcohol type: wine Patient Tobacco Use Status: Never used Tobacco e-Cigarette/Vaping Use: Never Used Second Hand Smoke Exposure: No service: No Current occupational status: retired Cognitive needs: No Hearing needs: No Vision needs: No Questionnaire PHQ-9 Over the last 2 weeks, how often have you been bothered by any of the following problems? 1. Little interest or pleasure in doing things: not at all 2. Feeling down, depressed, or hopeless: not at all 3. Trouble falling or staying asleep, or sleeping too much: not at all 4. Feeling tired or having little energy: not at all 5. Poor appetite or overeating: not at all 6. Feeling bad about yourself - or that you are a failure or have let yourself or your family down: not at all 7. Trouble concentrating on things, such as reading the newspaper or watching television: not at all 8. Moving or speaking so slowly that other people could have noticed. Or the opposite - being so fidgety or restless that you have been moving around a lot more than usual: not at all 9. Thoughts that you would be better off or of hurting yourself in some way: not at all Total score: 0 Depression Screening Interpretation: Negative Depression Screening Done: Yes 82872 - PHQ-9 Billing: Yes Source: Developed by Drs. Tray Berman, Ramandeep Aaron, Sen Baker and colleagues, with an educational gerardo from [employer]. Thrive Questionnaire Date Thrive assessed: 04/18/24 I am a: Patient What is your living situation today?: I have a steady place to live Within the past 12 months, did you worry whether your food would run out before you got money to buy more?: Never true Do you have trouble paying for medicines?: No Do you have trouble getting transportation to medical appointments?: No Do you have trouble paying your heating and electricity bill?: No Do you have trouble taking care of your child, family member or friend?: No Do you have trouble with day-to-day activities such as bathing, preparing meals, shopping, managing finances, etc.?: No Are you currently unemployed and looking for a job?: No Are you interested in more education?: No Please select the resources that you would like help with: None Currently or been in a relationship where the following occur: No concerns reported THRIVE Score: 0 AUDIT C Alcohol Use Questionnaire (AUDIT-C) 1. How often do you have a drink containing alcohol?: 2-3 times a week 2. How many drinks containing alcohol do you have on a typical day when you are drinking?: 1 or 2 3. How often do you have six or more drinks on one occasion?: Never Total Score: 3 Score Reviewed/Action Taken: Yes LOAN-7 AMB Questionnaire LOAN-7 Date LOAN - 7 assessed: 05/22/23 Feeling nervous, anxious, or on edge: 0 = Not at all Not being able to stop or control worryin = Not at all Worrying too much about different things: 0 = Not at all Trouble relaxin = Not at all Being so restless that it is hard to sit still: 0 = Not at all Becoming easily annoyed or irritable: 0 = Not at all Feeling afraid as if something awful might happen: 0 = Not at all Total LOAN-7 score (0-4 normal; 5-9 mild; 10-14 moderate; 15-21 severe): 0 Source: Developed by Drs. Tray Berman, Ramandeep Aaron, Sen Baker and colleagues, with an educational gerardo from [employer]. Review of Systems Const Denies chills, Denies fatigue, Denies fever(s), Denies headache(s), Denies malaise and Denies weakness Eyes Denies blurry vision, Denies change in vision, Denies irritation and Denies itchy eyes ENT Denies dysphagia, Denies dizziness, Denies otalgia, Denies headache(s), Denies nasal congestion, Denies neck pain, Denies odynophagia and Denies sore throat Card Denies chest pain, Denies rapid heart rate, Denies irregular heart rhythm, Denies palpitations and Denies dyspnea Resp Denies chest congestion, Denies cough, Denies dyspnea and Denies wheezing GI Denies abdominal pain, Denies bloating, Denies constipation, Denies dysphagia, Denies heartburn, Denies diarrhea, Denies nausea, Denies odynophagia and Denies vomiting Denies hematuria, Denies difficulty urinating, Denies dysuria, Denies urinary frequency and Denies urinary urgency Musc Denies back pain, Denies arthralgias, Denies joint swelling, Denies muscle weakness and Denies neck pain Skin/Breast Denies change in pigmentation, Denies lesions, Denies rash and Denies unusual bruising Neuro Denies dizziness, Denies headache(s), Denies paresthesias and Denies weakness Endo Denies fatigue and Denies palpitations Aller/Immun Denies itchy eyes and Denies wheezing Physical exam (Primary Care) Vital Signs: Last Vital Signs Pulse 58 04/21/24 12:36 BP 110/72 04/21/24 12:36 Pulse Ox 97 04/21/24 12:36 Oxygen Delivery Method Room Air 04/21/24 12:36 BMI result Body Mass Index 22.9 Tobacco/Smoking Status: Tobacco use Status Tobacco use date assessed 04/21/24 04/21/24 12:42 Patient Tobacco Use Status Never used Tobacco 04/21/24 12:42 e-Cigarette/Vaping Use Never Used 04/21/24 12:42 PHQ-9: PHQ-9 Score PHQ-9: Total score 0 04/21/24 13:05 Depression Screening Interpretation: Negative Thrive Assessment: Date of Thrive Assessment Date Thrive assessed 04/18/24 04/21/24 12:42 Currently or been in a relationship where the following occur: No concerns reported Const General: no acute distress, alert and awake Orientation/consciousness: patient oriented x3 HENMT Head: Yes normocephalic and Yes atraumatic Ears: external ears normal, TM's normal bilaterally and EAC's normal General nose exam: No nasal discharge present Face and sinus: Yes normal facial exam and Yes sinuses nontender Teeth and gingiva: dentition normal Throat: Yes posterior oropharynx normal and Yes tonsils normal (no TP congestion) Eyes Eyelids: Yes eyelids normal Conjunctivae: conjunctivae normal Pupils: Equal, round and reactive pupils present EOM: EOMs intact bilaterally Neck Neck: Yes no lymphadenopathy and Yes supple Thyroid: Thyroid normal Resp Auscultation: clear to auscultation bilaterally, no rales and no wheezes Cardio Rate: regular rate Rhythm: regular rhythm Heart sounds: Murmur heart sound present diastolic blowing, soft, II/ and at the left sternal border GI Palpation (GI): Soft to palpation, nontender and No hepatosplenomegaly present Auscultation: normal bowel sounds General: Yes no CVA tenderness Back/Spine/Pelvis Back: no CVA tenderness Thoracic/Lumbar Spine: thoracic and lumbar spine normal to inspection Skin Lesions: no lesions Rashes: no rashes Neuro General: patient oriented x3, moves all extremities, no focal motor deficits and CN's II-XI intact bilaterally Cranial nerves: Yes Equal, round and reactive pupils present Cognition (Neuro): normal cognition Gait exam (Neuro): Normal gait present Extrem General: Yes no clubbing, cyanosis or edema Results Reviewed Results Reviewed: Laboratory Tests 10/17/23 04/14/24 06:23 06:29 WBC 6.2 Hgb 12.5 L Hct 39.0 L Plt Count 229 Sodium 142 Potassium 4.0 Creatinine 1.21 Estimated GFR 59 Fasting Glucose 101 H Calcium 9.0 D AST 38 H ALT 25 Triglycerides 70 Cholesterol 184 LDL Cholesterol, Calc 99 HDL Cholesterol 71 Vitamin B12 437 25-OH Vitamin D Total 29.0 L TSH 3.44 Ur Specific [place] 1.025 Urine Protein Negative Urine Glucose (UA) Negative Urine Blood Negative Urine Nitrite Negative Ur Leukocyte Esterase Negative Coding Level of Care Code Est Pt Prev Care >65y(69482) Diagnoses Annual physical exam Z00.00 Cardiomyopathy, unspecified type I42.9 Cardiomyopathy type: unspecified Nonrheumatic aortic valve insufficiency I35.1 Cardiac valve disease etiology: nonrheumatic Essential hypertension I10 Pure hypercholesterolemia E78.00 Mild anemia D64.9 Eosinophilia, unspecified type D72.10 Eosinophilia type: unspecified eosinophilia Vitamin D deficiency E55.9 Erectile dysfunction, unspecified erectile dysfunction type N52.9 Erectile dysfunction type: unspecified Additional Codes PHQ-9 - 39923 - PHQ-9 Billing: Yes ([id number]) Assessment & Plan Assessment & Plan (1) Annual physical exam: Code(s): Z00.00 - Encounter for general adult medical examination without abnormal findings Category: Medical Plan: Results of his labs done last week reviewed and discussed with patient He is up-to-date with his cancer screenings - is not due for repeat colonoscopy until next year (2) Cardiomyopathy: Comment: Sees Dr Wilkes yearly for cardiology follow up Code(s): I42.9 - Cardiomyopathy, unspecified Category: Medical Qualifiers: Cardiomyopathy type: unspecified Qualified Code(s): I42.9 - Cardiomyopathy, unspecified Plan: This is mostly related to his aortic valve insufficiency He has been mostly asymptomatic until his brief bouts of dizziness last year but these have since resolved and he's had no recurrence of these symptoms lately Echocardiogram done on 06/08/2023 revealed (+) normal left ventricular size and systolic function, with mildly increased left ventricular wall thickness and the visually estimated ejection fraction is between 60-65%. There is no evidence of regional wall motion abnormalities; diastolic function is normal for age, There is also a mildly increased right ventricular cavity size, with normal right ventricular systolic function. The left atrium is moderately dilated and there is mild aortic valve stenosis, (+) mild to moderate aortic valve regurgitation and mild dilatation of the sinuses of Valsalva measuring 4.32 cm and mild dilatation of the ascending aorta measuring 4.00 cm. There is a bicuspid aortic valve and the raphe is between the right coronary cusp and non coronary cusp. Echocardiogram done in December 2022 revealed normal left ventricular size, with moderate concentric left ventricular hypertrophy and overall left ventricular systolic function is normal, with EF between 60 to 65%. There was grade 1 diastolic dysfunction with an impaired relaxation filling pattern and normal filling pressures. The basal inferior area was then mildly hypokinetic and left atrium was mildly dilated; RV systolic function is normal. AV valve is moderated calcified and there is [id number] aortic regurgitation and mild aortic stenosis - findings are mostly stable compared to echo done on 12/28/2021 Follow-up with cardiology (Dr. Wilkes) as scheduled - states that he had a follow up appt with Dr. Wilkes this past December 2023 and was advised that everything looks okay Will try to get the cardiology office to send over a copy of his recent OV notes and echocardiogram for documentation (3) Aortic regurgitation: Code(s): I35.1 - Nonrheumatic aortic (valve) insufficiency Category: Medical Qualifiers: Cardiac valve disease etiology: nonrheumatic Qualified Code(s): I35.1 - Nonrheumatic aortic (valve) insufficiency Plan: (+) mild to moderate aortic valve regurgitation seen on his most recent echocardiogram in May 2023, with mild aortic valve stenosis - these are mostly similar to his echo findings in December 2022 and previous echos Patient states that he had another echocardiogram done a few months ago in December 2023 and we will try to obtain a copy of this for our records Follow up with cardiology (Dr. Wilkes) as scheduled for continuing management and surveillance (4) Essential hypertension: Code(s): I10 - Essential (primary) hypertension Category: Medical Plan: Reinforced low sodium diet- goal is systolic BP of at least 130 mm or less, in light of the mild dilatation of his ascending aorta seen on his echocardiogram Continue Lisinopril 5 mg QD He is reminded to continue monitoring his blood pressure regularly (5) Pure hypercholesterolemia: Code(s): E78.00 - Pure hypercholesterolemia, unspecified Category: Medical Plan: He is advised that his cholesterol levels are all still at or near goal on his recent labs Reinforced low cholesterol diet Continue Atorvastatin 10 mg QD Will recheck his labs and fasting lipids in 6 months for follow up (6) Mild anemia: Code(s): D64.9 - Anemia, unspecified Category: Medical Plan: His H/H were still slightly low on his recent labs but remain stable - H/H = 12.5/39.0 Will continue to monitor his CBC regularly His Hgb electrophoresis done back in September 2023 came back normal (7) Eosinophilia: Code(s): D72.10 - Eosinophilia, unspecified Category: Medical Qualifiers: Eosinophilia type: unspecified eosinophilia Qualified Code(s): D72.10 - Eosinophilia, unspecified Plan: His eosinophil count/percentage has been noted to be slightly elevated persistently over the past few years although it has decreased on his recent labs and is almost back to normal Patient is currently asymptomatic Will continue monitoring this closely and will need further evaluation if this progresses or changes (8) Vitamin D deficiency: Code(s): E55.9 - Vitamin D deficiency, unspecified Category: Medical Plan: Patient is advised that his Vitamin D level is still low on his recent labs Will have him start back on OTC Vitamin D3 2000 units QD (9) Erectile dysfunction: Code(s): N52.9 - Male erectile dysfunction, unspecified Category: Medical Qualifiers: Erectile dysfunction type: unspecified Qualified Code(s): N52.9 - Male erectile dysfunction, unspecified Plan: Continue Sildenafil 100 mg PRN - Rx refilled Plan Follow up in 6 months Orders: Orders Comprehensive [place]. Panel Fast 6 Months E78.00 - Pure hypercholesterolemia, unspecified Prostate Specific Antigen 6 Months N40.0 - Benign prostatic hyperplasia without lower urinary tract symptoms Complete Blood Count Auto Diff 6 Months D64.9 - Anemia, unspecified Lipid Panel 6 Months E78.00 - Pure hypercholesterolemia, unspecified Medications: New cholecalciferol (vitamin D3) 50 mcg PO DAILY 90 days 90 caps 3RF E55.9 - Vitamin D deficiency, unspecified Refilled sildenafil (Viagra) administer 30 minutes to 4 hours before activity 100 mg PO DAILY 30 days PRN 10 tabs 2RF sexual activity N52.9 - Male erectile dysfunction, unspecified
== END 2024-04-21 13:24 | disposition home or self-care (01) ==
PROVIDERS: PCP Internal Medicine; Visit Provider Internal Medicine
DX: Z00.00 Encounter for general adult medical examination without abnormal findings (principal); I42.9 Cardiomyopathy, unspecified; I35.1 Nonrheumatic aortic (valve) insufficiency; I10 Essential (primary) hypertension; E78.00 Pure hypercholesterolemia, unspecified; D64.9 Anemia, unspecified; D72.10 Eosinophilia, unspecified; E55.9 Vitamin D deficiency, unspecified; N52.9 Male erectile dysfunction, unspecified

== ENCOUNTER → 2024-04-21 12:23 | Outpatient (BNVA) | payer MEDICARE, SELFPAY | PROVIDERS: PCP Internal Medicine; Visit Provider Internal Medicine | DX: Z00.00 Encounter for general adult medical examination without abnormal findings (principal); I42.9 Cardiomyopathy, unspecified; I35.1 Nonrheumatic aortic (valve) insufficiency; I10 Essential (primary) hypertension; E78.00 Pure hypercholesterolemia, unspecified; E55.9 Vitamin D deficiency, unspecified; D64.9 Anemia, unspecified; D72.10 Eosinophilia, unspecified; N52.9 Male erectile dysfunction, unspecified | CPT/HCPCS: 96127; 99397 ==

== ENCOUNTER 2024-10-15 06:05 | Outpatient (REF) | payer MEDICARE, SELFPAY ==
--- OUTSIDE RECORDS SUMMARY | 2024-10-15 06:07 | XMS_ITS | Patient Health Record ---
Author Organization [facility] Address [address] [place] [id number] Care Team Providers Care Barrel Coater Name Role Phone Kalyan ARREDONDO, [place] Primary Care Provider Tray Mckeon Unavailable [phone] Reason For Referral No Information Immunizations Vaccine Route Administration Date Status Comme nts Influenza Unknown 12/11/2019 Refused Problems Problem Type SNOMED Code ICD Code Onset Dates Problem Status W/U Status Risk Notes Problem Screening for malignant neoplasm of colon (158534413) Encounter for screening for malignant neoplasm of colon (Z12.11) Active confirmed Problem [id number] Preprocedural examination (Z01.818) Active confirmed Problem [id number] Family history of colon cancer (Z80.0) Active confirmed Problem [id number] Hx of adenomatous colonic polyps (Z86.010) Active confirmed Plan Of Treatment Future Test Test Name Order Date COLONOSCOPY 09/23/2014 COLONOSCOPY 12/11/2019 Insurance Providers Payer Name Payer Address Payer Phone Subscriber Number Group Number Insured Name Patient Relationship to Insured Coverage Start Date Coverage End Date [facility] [address] [place] [address] [id number] CAROL NEELY Self - patient is the insured Medical (General) History Medical History History ICD Code Colonoscopy 06-16-2009 and 2003--neg. for adenomas Denies MT,DM,CVA,Lung disease,renal dise ase Colonoscopy in 11/2014 with a small tubul ar adenoma removed Negative upper GI series in August of 2019. Surgical History Surgery Date(Month/Year)
[2024-10-15 06:19] LABS: MANUAL DIFF FLAG NO
[2024-10-15 07:20] LABS: Basophils Percent Auto 0.5 % (0-2); Eosinophils Absolute Auto 0.3 X10*3/uL (0.0-0.4); Eosinophils Percent Auto 5.2 % (0-4); Hematocrit 36.8 % (42.0-52.0); Hemoglobin 12.1 g/dl (14.0-18.0); Imm Gran Abs Auto 0.02 X10*3/uL (0.00-0.03); Imm Gran Pct Auto 0.3 % (0.0-0.4); Lymphocytes Absolute Auto 2.8 X10*3/uL (1.2-4.9); Lymphocytes Percent Auto 48.4 % (20-40); Mean Corpuscular HGB Conc 32.9 g/dl (31.0-36.0); Mean Corpuscular Hemoglobin 29.7 pg (27.0-33.0); Mean Corpuscular Volume 90.4 fL (80.0-98.0); Mean Platelet Volume 9.4 fL (9.4-12.4); Monocytes Absolute Auto 0.5 X10*3/uL (0.1-1.2); Monocytes Percent Auto 9.4 % (2-11); Neutrophils Absolute Auto 2.1 x10*3/uL (2.0-8.3); Neutrophils Percent Auto 36.2 % (45-73); Platelet Count 223 X10*3/uL (160-400); Red Blood Count 4.07 X10*6/uL (4.60-5.80); Red Cell Distribution Width 12.5 % (11.0-16.0); White Blood Count 5.7 X10*3/uL (4.8-10.8)
[2024-10-15 07:49] LABS: Alanine Aminotransferase 26 U/L (0-40); Albumin Level 4.1 g/dL (3.5-5.0); Alkaline Phosphatase 55 U/L (39-117); Anion Gap 10 (12-20); Aspartate Amino Transferase 41 U/L (5-37); Bilirubin Total 0.9 mg/dL (0.0-1.0); Blood Urea Nitrogen 28 mg/dL (9-16); Calcium 9.5 mg/dL (8.4-10.2); Carbon Dioxide 24 mmol/L (22-29); Chloride 110 mmol/L (96-108); Cholesterol 185 mg/dL (<200); Estimated Glomerular Filt Rate 57; Glucose Fasting 93 mg/dL (60-99); HDL Cholesterol 70 mg/dL (>40); LDL Cholesterol Calculated 102 mg/dL (<100); Potassium 4.1 mmol/L (3.3-5.1); Sodium 140 mmol/L (135-145); Total Protein 7.2 g/dL (6.5-8.0); Triglycerides 68 mg/dL (<150)
[2024-10-15 08:05] LABS: Prostate Specific Antigen 0.45 ng/mL (<0.05-4.0)
== END 2024-10-15 06:06 | disposition home or self-care (01) ==
LOC: HO.LAB 06:05
PROVIDERS: PCP Internal Medicine; Visit Provider Internal Medicine
DX: N40.0 Benign prostatic hyperplasia without lower urinary tract symptoms (principal); E78.00 Pure hypercholesterolemia, unspecified; D64.9 Anemia, unspecified; Z12.5 Encounter for screening for malignant neoplasm of prostate
CPT/HCPCS: 36415; 80053; 80061; 84153; 85025

== ENCOUNTER 2024-10-21 09:28 | Outpatient (AMB) | payer MEDICARE, SELFPAY ==
[2024-10-21 09:41] VITALS: BP 122/64; PULSE 56; O2SAT 97; BMI 23.1
--- NOTE | 2024-10-21 09:41 | A.OFFPC_ITS ---
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 Required: No Accompanied by: Self / Same As Patient Allergies No Known Allergies Allergy (Verified 10/21/24 09:59) Medication List - Last Reconciled 10/21/24 by Rinku Biggs MD atorvastatin 10 mg PO BEDTIME 90 days cholecalciferol (vitamin D3) 50 mcg PO DAILY 90 days lisinopril 5 mg PO DAILY 90 days omeprazole 20 mg PO DAILY sildenafil (Viagra) 100 mg PO DAILY PRN 30 days Tobacco use date assessed: 10/21/24 Fall risk assessment: No Falls in past year Last assessed Fall Risk: 10/21/24 Dental Screening Dental Screen Date: 10/21/24 Did you have a dental visit in the last 12 months?: Yes Did you have a dental problem in the last 6 months where you did not have access to dental care?: No Was dental information given to patient?: Patient has dentist HPI Hypertension HPI Details Patient comes in today for his follow up visit States that he feels okay He denies any headaches or dizziness Denies any chest pains, no SOB No nausea/vomiting, no abdominal pain No change in bowel habits noted States that he continues to work out and exercise regularly without any issues or problems He had his follow up labs done last week - to discuss his results ON LICENSE OF [facility] Medical History Essential hypertension Thoracic, thoracolumbar and lumbosacral intervertebral disc disorder Erectile dysfunction Vitamin D deficiency Transient leg weakness Pure hypercholesterolemia History of bradycardia Hypertension Aortic regurgitation Cardiomyopathy Surgical History Hx of colonoscopy Family History Father Diabetes Prostate cancer Mother Dementia Social History Housing: House Are you a primary med care manager to a significant other at home: No Do you presently have visiting nurse or other home services: No Alcohol intake: current Alcohol intake frequency: holidays/special occasions only Alcohol type: wine Patient Tobacco Use Status: Never used Tobacco e-Cigarette/Vaping Use: Never Used Second Hand Smoke Exposure: No service: No Current occupational status: retired Current occupational exposures/hazards: No Cognitive needs: No Hearing needs: No Vision needs: No Questionnaire PHQ-9 Over the last 2 weeks, how often have you been bothered by any of the following problems? 1. Little interest or pleasure in doing things: not at all 2. Feeling down, depressed, or hopeless: not at all 3. Trouble falling or staying asleep, or sleeping too much: not at all 4. Feeling tired or having little energy: not at all 5. Poor appetite or overeating: not at all 6. Feeling bad about yourself - or that you are a failure or have let yourself or your family down: not at all 7. Trouble concentrating on things, such as reading the newspaper or watching television: not at all 8. Moving or speaking so slowly that other people could have noticed. Or the opposite - being so fidgety or restless that you have been moving around a lot more than usual: not at all 9. Thoughts that you would be better off or of hurting yourself in some way: not at all Total score: 0 Depression Screening Interpretation: Negative Depression Screening Done: Yes 53986 - PHQ-9 Billing: Yes Source: Developed by Drs. Tray Berman, Ramandeep Aaron, Sen Baker and colleagues, with an educational gerardo from [employer]. Thrive Questionnaire Date Thrive assessed: 10/21/24 I am a: Patient What is your living situation today?: I have a steady place to live Within the past 12 months, did the food you bought not last and you didn't have the money to get more?: Never true Within the past 12 months, did you worry whether your food would run out before you got money to buy more?: Never true Do you have trouble paying for medicines?: No Do you have trouble getting transportation to medical appointments?: No Do you have trouble paying your heating and electricity bill?: No Do you have trouble taking care of your child, family member or friend?: No Do you have trouble with day-to-day activities such as bathing, preparing meals, shopping, managing finances, etc.?: No Are you currently unemployed and looking for a job?: No Are you interested in more education?: No Please select the resources that you would like help with: None Currently or been in a relationship where the following occur: No concerns reported THRIVE Score: 0 AUDIT C Alcohol Use Questionnaire (AUDIT-C) 1. How often do you have a drink containing alcohol?: 2-4 times a month 2. How many drinks containing alcohol do you have on a typical day when you are drinking?: 1 or 2 3. How often do you have six or more drinks on one occasion?: Never Total Score: 2 Score Reviewed/Action Taken: Yes LOAN-7 AMB Questionnaire LOAN-7 Date LOAN - 7 assessed: 10/21/24 Feeling nervous, anxious, or on edge: 0 = Not at all Not being able to stop or control worryin = Not at all Worrying too much about different things: 0 = Not at all Trouble relaxin = Not at all Being so restless that it is hard to sit still: 0 = Not at all Becoming easily annoyed or irritable: 0 = Not at all Feeling afraid as if something awful might happen: 0 = Not at all Total LOAN-7 score (0-4 normal; 5-9 mild; 10-14 moderate; 15-21 severe): 0 Source: Developed by Drs. Tray Berman, Ramandeep Aaron, Sen Baker and colleagues, with an educational gerardo from [employer]. Review of Systems Const Denies chills, Denies fatigue, Denies fever(s) and Denies headache(s) ENT Denies dysphagia, Denies dizziness, Denies otalgia, Denies headache(s), Denies neck pain, Denies odynophagia and Denies sore throat Card Denies chest pain, Denies palpitations and Denies dyspnea Resp Denies cough, Denies dyspnea and Denies wheezing GI Denies abdominal pain, Denies constipation, Denies dysphagia, Denies heartburn, Denies diarrhea, Denies nausea, Denies odynophagia and Denies vomiting Denies dysuria, Denies nocturia and Denies urinary frequency Musc Denies back pain, Denies arthralgias and Denies neck pain Skin/Breast Denies rash Neuro Denies dizziness and Denies headache(s) Endo Denies fatigue and Denies palpitations Aller/Immun Denies wheezing Physical exam (Primary Care) Vital Signs: Last Vital Signs Pulse 56 10/21/24 09:41 BP 122/64 10/21/24 09:41 Pulse Ox 97 10/21/24 09:41 Oxygen Delivery Method Room Air 10/21/24 09:41 BMI result Body Mass Index 23.1 Tobacco/Smoking Status: Tobacco use Status Tobacco use date assessed 10/21/24 10/21/24 09:45 Patient Tobacco Use Status Never used Tobacco 10/21/24 09:45 e-Cigarette/Vaping Use Never Used 10/21/24 09:45 PHQ-9: PHQ-9 Score PHQ-9: Total score 0 10/21/24 09:45 Depression Screening Interpretation: Negative Thrive Assessment: Date of Thrive Assessment Date Thrive assessed 10/21/24 10/21/24 09:45 Currently or been in a relationship where the following occur: No concerns reported Const General: no acute distress and alert HENMT Ears: TM's normal bilaterally and EAC's normal Throat: Yes posterior oropharynx normal and Yes tonsils normal (no TP congestion) Neck Neck: Yes no lymphadenopathy and Yes supple Thyroid: Thyroid normal Resp Auscultation: clear to auscultation bilaterally, no rales and no wheezes Cardio Rate: regular rate Rhythm: regular rhythm Heart sounds: Murmur heart sound present diastolic blowing, soft, II/ and at the left sternal border GI Palpation (GI): Soft to palpation and nontender Auscultation: normal bowel sounds General: Yes no CVA tenderness Back/Spine/Pelvis Back: no CVA tenderness Thoracic/Lumbar Spine: No lumbar spinal tenderness Skin Rashes: no rashes Extrem General: Yes no clubbing, cyanosis or edema Results Reviewed Results Reviewed: Laboratory Tests 10/15/24 06:17 WBC 5.7 Hgb 12.1 L Hct 36.8 L Plt Count 223 Sodium 140 Potassium 4.1 Creatinine 1.24 Estimated GFR 57 Fasting Glucose 93 Calcium 9.5 AST 41 H ALT 26 Triglycerides 68 Cholesterol 185 LDL Cholesterol, Calc 102 H HDL Cholesterol 70 Prostate Specific Ag 0.45 Coding Level of Care Code Est Pt Level 4 (94223) Diagnoses Cardiomyopathy, unspecified type I42.9 Cardiomyopathy type: unspecified Nonrheumatic aortic valve insufficiency I35.1 Cardiac valve disease etiology: nonrheumatic Essential hypertension I10 Pure hypercholesterolemia E78.00 Mild anemia D64.9 Eosinophilia, unspecified type D72.10 Eosinophilia type: unspecified eosinophilia Vitamin D deficiency E55.9 Erectile dysfunction, unspecified erectile dysfunction type N52.9 Erectile dysfunction type: unspecified Additional Codes PHQ-9 - 06323 - PHQ-9 Billing: Yes ([id number]) Assessment & Plan Assessment & Plan (1) Cardiomyopathy: Comment: Sees Dr Wilkes yearly for cardiology follow up Code(s): I42.9 - Cardiomyopathy, unspecified Category: Medical Qualifiers: Cardiomyopathy type: unspecified Qualified Code(s): I42.9 - Cardiomyopathy, unspecified Plan: This is mostly related to his aortic valve insufficiency He has been mostly asymptomatic until his brief bouts of dizziness last year but these have since resolved and he's had no recurrence of these symptoms lately Echocardiogram done on 06/08/2023 revealed (+) normal left ventricular size and systolic function, with mildly increased left ventricular wall thickness and the visually estimated ejection fraction is between 60-65%. There is no evidence of regional wall motion abnormalities; diastolic function is normal for age, There is also a mildly increased right ventricular cavity size, with normal right ventricular systolic function. The left atrium is moderately dilated and there is mild aortic valve stenosis, (+) mild to moderate aortic valve regurgitation and mild dilatation of the sinuses of Valsalva measuring 4.32 cm and mild dilatation of the ascending aorta measuring 4.00 cm. There is a bicuspid aortic valve and the raphe is between the right coronary cusp and non coronary cusp. Echocardiogram done in December 2022 revealed normal left ventricular size, with moderate concentric left ventricular hypertrophy and overall left ventricular systolic function is normal, with EF between 60 to 65%. There was grade 1 diastolic dysfunction with an impaired relaxation filling pattern and normal filling pressures. The basal inferior area was then mildly hypokinetic and left atrium was mildly dilated; RV systolic function is normal. AV valve is moderated calcified and there is [id number] aortic regurgitation and mild aortic stenosis - findings are mostly stable compared to echo done on 12/28/2021 Follow-up with cardiology (Dr. Wilkes) as scheduled - states that he had a follow up appt with Dr. Wilkes this past December 2023 and was advised that everything looks okay (2) Aortic regurgitation: Code(s): I35.1 - Nonrheumatic aortic (valve) insufficiency Category: Medical Qualifiers: Cardiac valve disease etiology: nonrheumatic Qualified Code(s): I35.1 - Nonrheumatic aortic (valve) insufficiency Plan: (+) mild to moderate aortic valve regurgitation seen on his most recent echocardiogram in May 2023, with mild aortic valve stenosis - these are mostly similar to his echo findings in December 2022 and previous echos Patient states that he had another echocardiogram done a few months ago in December 2023 and we will try to obtain a copy of this for our records Follow up with cardiology (Dr. Wilkes) as scheduled for continuing management and surveillance (3) Essential hypertension: Code(s): I10 - Essential (primary) hypertension Category: Medical Plan: Reinforced low sodium diet- goal is systolic BP of at least 130 mm or less, in light of the mild dilatation of his ascending aorta seen on his echocardiogram Continue Lisinopril 5 mg QD He is reminded to continue monitoring his blood pressure regularly (4) Pure hypercholesterolemia: Code(s): E78.00 - Pure hypercholesterolemia, unspecified Category: Medical Plan: Results of his labs done last week reviewed and discussed with patient - his cholesterol levels are all at or near goal Reinforced low cholesterol diet Continue Atorvastatin 10 mg QD Will recheck his labs and fasting lipids in 6 months for follow up (5) Mild anemia: Code(s): D64.9 - Anemia, unspecified Category: Medical Plan: His H/H were still slightly low on his recent labs but remain stable - H/H = 12.1/36.8 Will continue to monitor his CBC regularly His Hgb electrophoresis done back in September 2023 came back normal (6) Eosinophilia: Code(s): D72.10 - Eosinophilia, unspecified Category: Medical Qualifiers: Eosinophilia type: unspecified eosinophilia Qualified Code(s): D72.10 - Eosinophilia, unspecified Plan: His eosinophil count/percentage has been noted to be slightly elevated persistently over the past few years and is still slightly elevated on his recent labs Patient is currently asymptomatic Will continue monitoring this closely - may need further evaluation if this progresses or changes (7) Vitamin D deficiency: Code(s): E55.9 - Vitamin D deficiency, unspecified Category: Medical Plan: Continue OTC Vitamin D3 2000 units QD (8) Erectile dysfunction: Code(s): N52.9 - Male erectile dysfunction, unspecified Category: Medical Qualifiers: Erectile dysfunction type: unspecified Qualified Code(s): N52.9 - Male erectile dysfunction, unspecified Plan: Continue Sildenafil 100 mg PRN Plan To return in 6 months (as scheduled on 04/22/2025) for his next annual physical examination He will also be due for his 5 year colonoscopy recall with Dr. Hutson in January 2025 Orders: Orders Vitamin B12 and Folate 04/13/25 E53.8 - Deficiency of other specified B group vitamins, Z00.00 - Encounter for general adult medical examination without abnormal findings Hemoglobin A1c 04/13/25 R73.01 - Impaired fasting glucose Complete Blood Count Auto Diff 04/13/25 D64.9 - Anemia, unspecified, Z00.00 - Encounter for general adult medical examination without abnormal findings Comprehensive [place]. Panel Fast 04/13/25 E78.00 - Pure hypercholesterolemia, unspecified, Z00.00 - Encounter for general adult medical examination without abnormal findings Lipid Panel 04/13/25 E78.00 - Pure hypercholesterolemia, unspecified, Z00.00 - Encounter for general adult medical examination without abnormal findings TSH reflex Free T4 04/13/25 E78.00 - Pure hypercholesterolemia, unspecified, Z00.00 - Encounter for general adult medical examination without abnormal findings UA CC w/rflx Micro + Cult 04/13/25 R30.0 - Dysuria, Z00.00 - Encounter for general adult medical examination without abnormal findings Vitamin D 25-OH Total 04/13/25 E55.9 - Vitamin D deficiency, unspecified, Z00.00 - Encounter for general adult medical examination without abnormal findings
--- OUTSIDE RECORDS SUMMARY | 2024-10-21 10:07 | XMS_ITS | Patient Health Record ---
Author Organization [facility] Address [address] [place] [address] Care Team Providers Care Computer Security Specialist Name Role Phone Kalyan ARREDONDO, [place] Primary Care Provider Tray Mckeon Unavailable [phone] Reason For Referral No Information Immunizations Vaccine Route Administration Date Status Comme nts Influenza Unknown 12/11/2019 Refused Problems Problem Type SNOMED Code ICD Code Onset Dates Problem Status W/U Status Risk Notes Problem Screening for malignant neoplasm of colon (656231724) Encounter for screening for malignant neoplasm of colon (Z12.11) Active confirmed Problem 565902162327219 Preprocedural examination (Z01.818) Active confirmed Problem 134093304 Family history of colon cancer (Z80.0) Active confirmed Problem 039292446 Hx of adenomatous colonic polyps (Z86.010) Active confirmed Plan Of Treatment Future Test Test Name Order Date COLONOSCOPY 09/23/2014 COLONOSCOPY 12/11/2019 Insurance Providers Payer Name Payer Address Payer Phone Subscriber Number Group Number Insured Name Patient Relationship to Insured Coverage Start Date Coverage End Date [facility] [address] [place] [address] [id number] CAROL NEELY Self - patient is the insured Medical (General) History Medical History History ICD Code Colonoscopy 06-16-2009 and 2003--neg. for adenomas Denies MD,DM,CVA,Lung disease,renal dise ase Colonoscopy in 11/2014 with a small tubul ar adenoma removed Negative upper GI series in August of 2019. Surgical History Surgery Date(Month/Year)
--- OUTSIDE RECORDS SUMMARY | 2024-10-21 10:08 | XMS_ITS | Patient Health Record ---
Author Organization [facility] [place] Address [address] [place] [address] Care Team Providers Care Golf Tournament Consultant Name Role Phone Abdoulaye King Primary Care Provider Marlon Andrade Unavailable [phone] Reason For Referral No Information Social History Tobacco use other than smoking: Question Answer Notes Are you an other tobacco user? No Plan Of Treatment Pending Test Test Name Order Date [id number] Destruction, -03/20/2016 [id number] Destruction, 05-0604/06/2016 [id number] Destruction, 05-0605/11/2016 [id number] Destruction, 05-0606/21/2016 13719-Rlihnxxg Plate 03/20/2016 Insurance Providers Payer Name Payer Address Payer Phone Subscriber Number Group Number Insured Name Patient Relationship to Insured Coverage Start Date Coverage End Date [facility] [employer] [address] [place] [address] [phone] [id number] GarciaJeremías coulter Self - patient is the insured
== END 2024-10-21 10:11 | disposition home or self-care (01) ==
LOC: HO.HMCH 09:28
PROVIDERS: PCP Internal Medicine; Visit Provider Internal Medicine
DX: I42.9 Cardiomyopathy, unspecified (principal); I35.1 Nonrheumatic aortic (valve) insufficiency; I10 Essential (primary) hypertension; E78.00 Pure hypercholesterolemia, unspecified; D64.9 Anemia, unspecified; D72.10 Eosinophilia, unspecified; E55.9 Vitamin D deficiency, unspecified; N52.9 Male erectile dysfunction, unspecified

== ENCOUNTER → 2024-10-21 09:28 | Outpatient (BNVA) | payer MEDICARE, SELFPAY | PROVIDERS: PCP Internal Medicine; Visit Provider Internal Medicine | DX: I10 Essential (primary) hypertension (principal); I42.9 Cardiomyopathy, unspecified; I35.1 Nonrheumatic aortic (valve) insufficiency; E78.00 Pure hypercholesterolemia, unspecified; D64.9 Anemia, unspecified; D72.10 Eosinophilia, unspecified; E55.9 Vitamin D deficiency, unspecified; N52.9 Male erectile dysfunction, unspecified | CPT/HCPCS: 96127; 99212 ==

== ENCOUNTER 2025-04-15 06:04 | Outpatient (REF) | payer MEDICARE, SELFPAY ==
--- OUTSIDE RECORDS SUMMARY | 2025-04-15 06:07 | XMS_ITS | Patient Health Record ---
Author Organization [facility] [place] Address [address] [place] [address] Care Team Providers Care Line Erector Name Role Phone Abdoulaye King Primary Care Provider Marlon Peña Unavailable [phone] Reason For Referral No Information Social History Tobacco use other than smoking: Question Answer Notes Are you an other tobacco user? No Plan Of Treatment Pending Test Test Name Order Date [id number] Destruction, -03/20/2016 [id number] Destruction, 05-0604/06/2016 15657-Ijts Destruction, 05-0605/11/2016 64790-Wjey Destruction, 05-0606/21/2016 78314-Mepponsp Plate 03/20/2016 Insurance Providers Payer Name Payer Address Payer Phone Subscriber Number Group Number Insured Name Patient Relationship to Insured Coverage Start Date Coverage End Date [facility] [address] [place] [address] [id number] Jeremías Garcia Self - patient is the insured
--- OUTSIDE RECORDS SUMMARY | 2025-04-15 06:07 | XMS_ITS | Patient Health Record ---
Author Organization [facility] Address [address] [place] [address] Care Team Providers Care Section Leader Screen Printing Name Role Phone Rinku Biggs MD Primary Care Provider Tray Mckeon Unavailable [phone] Reason For Referral Referring Provider First Name Rinku Referring Provider Last Name Kalyan Referring Provider Speciality Internal M edicine Referred Organization [facility] Referred Provider Tray Hutson Referred Address [address],[place], [place],[address], Referred Provider Specialty Gastroentero logy General Notes Yoana Zamarripa 2024 03:52:49 PM EST > requested an [facility] referral for visit with Dr. Hutson for screening colon with Dr. 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 Section Notes: Nonsmoker; occasional beer Nonsmoker; occasional beer Problems Problem Type SNOMED Code ICD Code Onset Dates Problem Status W/U Status Risk Notes Problem Screening for malignant neoplasm of colon (730209514) Encounter for screening for malignant neoplasm of colon (Z12.11) Active confirmed Problem Preprocedural examination (523461671241847) Preprocedural examination (Z01.818) Active confirmed Problem Family History of Cancer of Colon (Situation) (642451074) Family history of colon cancer (Z80.0) Active confirmed Problem History of adenomatous polyp of colon (460319795) Hx of adenomatous colonic polyps (Z86.010) Active confirmed Plan Of Treatment Future Test Test Name Order Date COLONOSCOPY 09/23/2014 COLONOSCOPY 12/11/2019 Next Appt Details Provider Name:Tray Hutson , 05/19/2025 01:20:00 PM, [address] [place] [address], [address], [place], [address], Insurance Providers Payer Name Payer Address Payer Phone Subscriber Number Group Number Insured Name Patient Relationship to Insured Coverage Start Date Coverage End Date [facility] [place] [place] [employer] PROF[employer]AL CLAIMS [address] [place] [address] [id number] CAROL NEELY Self - patient is the insured Medical (General) History Medical History History ICD Code Colonoscopy 06-16-2009 and 2003--neg. for adenomas Denies [place],DM,CVA,Lung disease,renal dise ase Colonoscopy in 11/2014 with a small tubul ar adenoma removed Negative upper GI series in August of 2019. Surgical History Surgery Date(Month/Year)
[2025-04-15 06:23] LABS: MANUAL DIFF FLAG NO
[2025-04-15 07:14] LABS: Hematocrit 40.2 % (42.0-52.0); Hemoglobin 13.0 g/dl (14.0-18.0); Imm Gran Abs Auto 0.01 X10*3/uL (0.00-0.03); Imm Gran Pct Auto 0.2 % (0.0-0.4); Lymphocytes Absolute Auto 2.8 X10*3/uL (1.2-4.9); Mean Corpuscular HGB Conc 32.3 g/dl (31.0-36.0); Mean Corpuscular Hemoglobin 29.9 pg (27.0-33.0); Mean Corpuscular Volume 92.4 fL (80.0-98.0); NRBC Abs Auto 0.000 X10*3/uL (0.0-0.012); NRBC Pct Auto 0.0 /100WBC (0.0-0.2); Platelet Count 236 X10*3/uL (160-400); Red Blood Count 4.35 X10*6/uL (4.60-5.80); White Blood Count 5.8 X10*3/uL (4.8-10.8)
[2025-04-15 07:32] LABS: Appearance Urine Clear; Glucose Urine UA Negative (Negative); PH 6.0 (5.0-9.0); Specific Gravity - Urine 1.020 (1.005-1.025)
[2025-04-15 07:43] LABS: Alanine Aminotransferase 25 U/L (0-40); Albumin Level 4.2 g/dL (3.5-5.0); Alkaline Phosphatase 60 U/L (39-117); Anion Gap 10 (12-20); Aspartate Amino Transferase 43 U/L (5-37); Blood Urea Nitrogen 29 mg/dL (9-16); Calcium 9.4 mg/dL (8.4-10.2); Carbon Dioxide 26 mmol/L (22-29); Chloride 110 mmol/L (96-108); Cholesterol 167 mg/dL (<200); Estimated Glomerular Filt Rate 58; HDL Cholesterol 69 mg/dL (>40); Potassium 4.2 mmol/L (3.3-5.1); Sodium 142 mmol/L (135-145); Total Protein 7.2 g/dL (6.5-8.0); Triglycerides 71 mg/dL (<150)
[2025-04-15 08:03] LABS: Vitamin B12 324 pg/mL (200-900)
[2025-04-15 08:28] LABS: Folate 10.6 ng/mL (> or = 4.0)
== END 2025-04-15 06:05 | disposition home or self-care (01) ==
LOC: HO.LAB 06:04
PROVIDERS: PCP Internal Medicine; Visit Provider Internal Medicine
DX: Z00.00 Encounter for general adult medical examination without abnormal findings (principal); E53.8 Deficiency of other specified B group vitamins; E78.00 Pure hypercholesterolemia, unspecified; D64.9 Anemia, unspecified; E55.9 Vitamin D deficiency, unspecified; R30.0 Dysuria; R73.01 Impaired fasting glucose
CPT/HCPCS: 36415; 80053; 80061; 81003; 82306; 82607; 82746; 83036; 84443; 85025

== ENCOUNTER 2025-04-22 10:10 | Outpatient (AMB) | payer MEDICARE, SELFPAY ==
--- NOTE | 2025-04-22 10:31 | A.OFFPC_ITS ---
Vital Signs 04/22/25 10:32 Height 6 ft Weight 170 lb 2 oz BMI 23.1 BP 110/68 Blood Pressure Location Lt brachial Position Sitting Pulse 52 Pulse Source Pulse Oximeter Pulse Oximetry (%) 98 Oxygen Delivery Method Room Air Intake Visit Reasons: Annual exam - see comments Government Affairs Manager Required: No Accompanied by: Self / Same As Patient Allergies No Known Allergies Allergy (Verified 04/22/25 11:31) Medication List - Last Reconciled 04/22/25 by Rinku Biggs MD atorvastatin 10 mg PO BEDTIME 90 days cholecalciferol (vitamin D3) 50 mcg PO DAILY 90 days lisinopril 5 mg PO DAILY 90 days omeprazole 20 mg PO DAILY sildenafil (Viagra) 100 mg PO DAILY PRN 30 days Tobacco use date assessed: 04/22/25 Fall risk assessment: No Falls in past year Last assessed Fall Risk: 04/22/25 Dental Screening Dental Screen Date: 04/22/25 Did you have a dental visit in the last 12 months?: Yes Did you have a dental problem in the last 6 months where you did not have access to dental care?: No Was dental information given to patient?: Patient has dentist HPI Annual exam - see comments HPI Details Patient comes in today for his annual physical examination States that he feels okay He denies any headaches or dizziness Denies any chest pains, no increased SOB No nausea/vomiting, no abdominal pain No change in bowel habits noted He denies any acute urinary symptoms Needs his Sildenafil Rx refilled He had his follow up labs done last week - to discuss his results He is now due for his repeat colonoscopy and has a follow up appointment scheduled with Dr. Hutson next month on 05/19/2025, after which he will be scheduled for his repeat colonoscopy [facility] Medical History Essential hypertension Thoracic, thoracolumbar and lumbosacral intervertebral disc disorder Erectile dysfunction Vitamin D deficiency Transient leg weakness Pure hypercholesterolemia History of bradycardia Hypertension Aortic regurgitation Cardiomyopathy Surgical History Hx of colonoscopy Family History Father Diabetes Prostate cancer Mother Dementia Social History (Reviewed 04/22/25 @ 10:32 by CRISTY Grant Housing: House Are you a primary residential child care counselor to a significant other at home: No Do you presently have visiting nurse or other home services: No Alcohol intake: current Alcohol intake frequency: holidays/special occasions only Alcohol type: wine Patient Tobacco Use Status: Never used Tobacco e-Cigarette/Vaping Use: Never Used Second Hand Smoke Exposure: No service: No Current occupational status: retired Current occupational exposures/hazards: No Cognitive needs: No Hearing needs: No Vision needs: No Questionnaire PHQ-9 Over the last 2 weeks, how often have you been bothered by any of the following problems? 1. Little interest or pleasure in doing things: not at all 2. Feeling down, depressed, or hopeless: not at all 3. Trouble falling or staying asleep, or sleeping too much: not at all 4. Feeling tired or having little energy: not at all 5. Poor appetite or overeating: not at all 6. Feeling bad about yourself - or that you are a failure or have let yourself or your family down: not at all 7. Trouble concentrating on things, such as reading the newspaper or watching television: not at all 8. Moving or speaking so slowly that other people could have noticed. Or the opposite - being so fidgety or restless that you have been moving around a lot more than usual: not at all 9. Thoughts that you would be better off or of hurting yourself in some way: not at all Total score: 0 Depression Screening Interpretation: Negative Depression Screening Done: Yes 50365 - PHQ-9 Billing: Yes Source: Developed by Drs. Tray Berman, Ramandeep Aaron, Sen Baker and colleagues, with an educational gerardo from [employer]. Thrive Questionnaire Date Thrive assessed: 04/22/25 I am a: Patient What is your living situation today?: I have a steady place to live Within the past 12 months, did the food you bought not last and you didn't have the money to get more?: Never true Within the past 12 months, did you worry whether your food would run out before you got money to buy more?: Never true Do you have trouble paying for medicines?: No Do you have trouble getting transportation to medical appointments?: No Do you have trouble paying your heating and electricity bill?: No Do you have trouble taking care of your child, family member or friend?: No Do you have trouble with day-to-day activities such as bathing, preparing meals, shopping, managing finances, etc.?: No Are you currently unemployed and looking for a job?: No Are you interested in more education?: No Please select the resources that you would like help with: None Currently or been in a relationship where the following occur: No concerns reported THRIVE Score: 0 AUDIT C Alcohol Use Questionnaire (AUDIT-C) 1. How often do you have a drink containing alcohol?: 2-4 times a month 2. How many drinks containing alcohol do you have on a typical day when you are drinking?: 1 or 2 3. How often do you have six or more drinks on one occasion?: Never Total Score: 2 Score Reviewed/Action Taken: Yes LOAN-7 AMB Questionnaire LOAN-7 Date LOAN - 7 assessed: 04/22/25 Feeling nervous, anxious, or on edge: 0 = Not at all Not being able to stop or control worryin = Not at all Worrying too much about different things: 0 = Not at all Trouble relaxin = Not at all Being so restless that it is hard to sit still: 0 = Not at all Becoming easily annoyed or irritable: 0 = Not at all Feeling afraid as if something awful might happen: 0 = Not at all Total LOAN-7 score (0-4 normal; 5-9 mild; 10-14 moderate; 15-21 severe): 0 Source: Developed by Drs. Tray Berman, Ramandeep Aaron, Sen Baker and colleagues, with an educational gerardo from [employer]. Review of Systems Const Denies chills, Denies fatigue, Denies fever(s), Denies headache(s), Denies malaise and Denies weakness Eyes Denies blurry vision, Denies change in vision, Denies irritation and Denies itchy eyes ENT Denies dysphagia, Denies dizziness, Denies otalgia, Denies headache(s), Denies nasal congestion, Denies neck pain, Denies odynophagia and Denies sore throat Card Denies rapid heart rate, Denies irregular heart rhythm, Denies palpitations and Denies dyspnea Resp Denies chest congestion, Denies cough, Denies dyspnea and Denies wheezing GI Denies abdominal pain, Denies bloating, Denies constipation, Denies dysphagia, Denies heartburn, Denies diarrhea, Denies nausea, Denies odynophagia and Denies vomiting Denies hematuria, Denies difficulty urinating, Denies dysuria, Denies urinary frequency and Denies urinary urgency Musc Denies back pain, Denies arthralgias, Denies joint swelling, Denies muscle weakness and Denies neck pain Skin/Breast Denies change in pigmentation, Denies lesions, Denies rash and Denies unusual bruising Neuro Denies dizziness, Denies headache(s), Denies paresthesias and Denies weakness Endo Denies fatigue and Denies palpitations Aller/Immun Denies itchy eyes and Denies wheezing Physical exam (Primary Care) Vital Signs: Last Vital Signs Pulse 52 04/22/25 10:32 BP 110/68 04/22/25 10:32 Pulse Ox 98 04/22/25 10:32 Oxygen Delivery Method Room Air 04/22/25 10:32 BMI result Body Mass Index 23.1 Tobacco/Smoking Status: Tobacco use Status Tobacco use date assessed 04/22/25 04/22/25 10:33 Patient Tobacco Use Status Never used Tobacco 04/22/25 10:33 e-Cigarette/Vaping Use Never Used 04/22/25 10:33 PHQ-9: PHQ-9 Score PHQ-9: Total score 0 04/22/25 10:33 Depression Screening Interpretation: Negative Thrive Assessment: Date of Thrive Assessment Date Thrive assessed 04/22/25 04/22/25 10:33 Currently or been in a relationship where the following occur: No concerns reported Const General: no acute distress, alert and awake Orientation/consciousness: patient oriented x3 HENMT Head: Yes normocephalic and Yes atraumatic Ears: external ears normal, TM's normal bilaterally and EAC's normal General nose exam: No nasal discharge present Face and sinus: Yes normal facial exam and Yes sinuses nontender Teeth and gingiva: dentition normal Throat: Yes posterior oropharynx normal and Yes tonsils normal (no TP congestion) Eyes Eyelids: Yes eyelids normal Conjunctivae: conjunctivae normal Pupils: Equal, round and reactive pupils present EOM: EOMs intact bilaterally Neck Neck: Yes no lymphadenopathy and Yes supple Thyroid: Thyroid normal Resp Auscultation: clear to auscultation bilaterally, no rales and no wheezes Cardio Rate: regular rate Rhythm: regular rhythm Heart sounds: Murmur heart sound present diastolic blowing, soft, II/ and at the left sternal border GI Palpation (GI): Soft to palpation, nontender and No hepatosplenomegaly present Auscultation: normal bowel sounds General: Yes no CVA tenderness Back/Spine/Pelvis Back: no CVA tenderness Thoracic/Lumbar Spine: thoracic and lumbar spine normal to inspection Skin Lesions: no lesions Rashes: no rashes Neuro General: patient oriented x3, moves all extremities, no focal motor deficits and CN's II-XI intact bilaterally Cranial nerves: Yes Equal, round and reactive pupils present Cognition (Neuro): normal cognition Gait exam (Neuro): Normal gait present Extrem General: Yes no clubbing, cyanosis or edema Results Reviewed Results Reviewed: Laboratory Tests 04/15/25 04/15/25 06:11 06:20 WBC 5.8 Hgb 13.0 L Hct 40.2 L Plt Count 236 Sodium 142 Potassium 4.2 Creatinine 1.22 Estimated GFR 58 Fasting Glucose 97 Hemoglobin A1c % 5.4 Calcium 9.4 AST 43 H ALT 25 Triglycerides 71 Cholesterol 167 LDL Cholesterol, Calc 84 HDL Cholesterol 69 Vitamin B12 324 25-OH Vitamin D Total 28.1 L TSH 3.40 Ur Specific [place] 1.020 Urine Protein Negative Urine Glucose (UA) Negative Urine Blood Negative Urine Nitrite Negative Ur Leukocyte Esterase Negative Coding Level of Care Code Est Pt Prev Care >65y(02825) Diagnoses Annual physical exam Z00.00 Cardiomyopathy, unspecified type I42.9 Cardiomyopathy type: unspecified Nonrheumatic aortic valve insufficiency I35.1 Cardiac valve disease etiology: nonrheumatic Essential hypertension I10 Pure hypercholesterolemia E78.00 Mild anemia D64.9 Eosinophilia, unspecified type D72.10 Eosinophilia type: unspecified eosinophilia Vitamin D deficiency E55.9 Erectile dysfunction, unspecified erectile dysfunction type N52.9 Erectile dysfunction type: unspecified Additional Codes PHQ-9 - 81576 - PHQ-9 Billing: Yes ([id number]) Assessment & Plan Assessment & Plan (1) Annual physical exam: Code(s): Z00.00 - Encounter for general adult medical examination without abnormal findings Category: Medical Plan: Results of his labs done last week reviewed and discussed with patient His PSA level back in September 2024 came out normal He is now due for his repeat colonoscopy and has a follow up appointment scheduled with Dr. Hutson next month on 05/19/2025, after which he will be scheduled for his repeat colonoscopy (2) Cardiomyopathy: Comment: Sees Dr Wilkes yearly for cardiology follow up Code(s): I42.9 - Cardiomyopathy, unspecified Category: Medical Qualifiers: Cardiomyopathy type: unspecified Qualified Code(s): I42.9 - Cardiomyopathy, unspecified Plan: This is mostly related to his aortic valve insufficiency He has been mostly asymptomatic until his brief bouts of dizziness last year but these have since resolved and he's had no recurrence of these symptoms lately Echocardiogram done on 06/08/2023 revealed (+) normal left ventricular size and systolic function, with mildly increased left ventricular wall thickness and the visually estimated ejection fraction is between 60-65%. There is no evidence of regional wall motion abnormalities; diastolic function is normal for age, There is also a mildly increased right ventricular cavity size, with normal right ventricular systolic function. The left atrium is moderately dilated and there is mild aortic valve stenosis, (+) mild to moderate aortic valve regurgitation and mild dilatation of the sinuses of Valsalva measuring 4.32 cm and mild dilatation of the ascending aorta measuring 4.00 cm. There is a bicuspid aortic valve and the raphe is between the right coronary cusp and non coronary cusp. Echocardiogram done in December 2022 revealed normal left ventricular size, with moderate concentric left ventricular hypertrophy and overall left ventricular systolic function is normal, with EF between 60 to 65%. There was grade 1 diastolic dysfunction with an impaired relaxation filling pattern and normal filling pressures. The basal inferior area was then mildly hypokinetic and left atrium was mildly dilated; RV systolic function is normal. AV valve is moderated calcified and there is [id number] aortic regurgitation and mild aortic stenosis - findings are mostly stable compared to echo done on 12/28/2021 Follow-up with cardiology (Dr. Wilkes) as scheduled - he had a follow up appt with Dr. Wilkes recently on 02/19/2025 and was advised to continue with observation at this time and will have him repeat his echocardiogram in 1 year (2025) for follow up (3) Aortic regurgitation: Code(s): I35.1 - Nonrheumatic aortic (valve) insufficiency Category: Medical Qualifiers: Cardiac valve disease etiology: nonrheumatic Qualified Code(s): I35.1 - Nonrheumatic aortic (valve) insufficiency Plan: (+) mild to moderate aortic valve regurgitation seen on his most recent echocardiogram in May 2023, with mild aortic valve stenosis - these are mostly similar to his echo findings in December 2022 and previous echos Patient states that he had another echocardiogram done a few months ago in December 2023 and we will try to obtain a copy of this for our records Follow up with cardiology (Dr. Wilkes) as scheduled for continuing management and surveillance He is again scheduled for repeat echocardiogram in January 2026 for follow up (4) Essential hypertension: Code(s): I10 - Essential (primary) hypertension Category: Medical Plan: Reinforced low sodium diet- goal is systolic BP of at least 130 mm or less, in light of the mild dilatation of his ascending aorta seen on his echocardiogram Continue Lisinopril 5 mg QD He is reminded to continue monitoring his blood pressure regularly (5) Pure hypercholesterolemia: Code(s): E78.00 - Pure hypercholesterolemia, unspecified Category: Medical Plan: Patient is advised that his cholesterol levels are all at or near goal on his recent labs and that they have improved slightly from previous Reinforced low cholesterol diet Continue Atorvastatin 10 mg QD Will recheck his labs and fasting lipids in 6 months for follow up (6) Mild anemia: Code(s): D64.9 - Anemia, unspecified Category: Medical Plan: His H/H were still slightly low on his recent labs but remain stable - H/H = 13.0/40.2 Will continue to monitor his CBC regularly His Hgb electrophoresis done back in September 2023 came back normal (7) Eosinophilia: Code(s): D72.10 - Eosinophilia, unspecified Category: Medical Qualifiers: Eosinophilia type: unspecified eosinophilia Qualified Code(s): D72.10 - Eosinophilia, unspecified Plan: His eosinophil count/percentage has been noted to be slightly elevated persistently over the past few years and is still slightly elevated on his recent labs (4.7%) Patient is currently asymptomatic Will continue monitoring this closely - may need further evaluation if this progresses or changes (8) Vitamin D deficiency: Code(s): E55.9 - Vitamin D deficiency, unspecified Category: Medical Plan: Continue OTC Vitamin D3 2000 units QD (9) Erectile dysfunction: Code(s): N52.9 - Male erectile dysfunction, unspecified Category: Medical Qualifiers: Erectile dysfunction type: unspecified Qualified Code(s): N52.9 - Male erectile dysfunction, unspecified Plan: Continue Sildenafil 100 mg PRN - Rx refilled Plan Follow up in 6 months Orders: Orders Complete Blood Count Auto Diff 6 Months D64.9 - Anemia, unspecified Comprehensive [place]. Panel Fast 6 Months E78.00 - Pure hypercholesterolemia, unspecified Vitamin D 25-OH Total 6 Months E55.9 - Vitamin D deficiency, unspecified Lipid Panel 6 Months E78.00 - Pure hypercholesterolemia, unspecified TSH reflex Free T4 6 Months E78.00 - Pure hypercholesterolemia, unspecified UA CC w/rflx Micro + Cult 6 Months R30.0 - Dysuria Medications: Refilled sildenafil (Viagra) administer 30 minutes to 4 hours before activity 100 mg PO DAILY PRN 10 tabs 2RF sexual activity 30 days N52.9 - Male erectile dysfunction, unspecified
[2025-04-22 10:32] VITALS: BP 110/68; PULSE 52; O2SAT 98; BMI 23.1
--- OUTSIDE RECORDS SUMMARY | 2025-04-22 11:15 | XMS_ITS | Patient Health Record ---
Author Organization [facility] Address [address] [place] [address] Care Team Providers Care Individual Pension Consultant Name Role Phone Rinku Biggs MD Primary Care Provider Tray Mckeon Unavailable [phone] Reason For Referral Referring Provider First Name Rinku Referring Provider Last Name Kalyan Referring Provider Speciality Internal M edicine Referred Organization [facility] Referred Provider Tray Hutson Referred Address [address],[place], [place],[address], Referred Provider Specialty Gastroentero logy General Notes Yoana Zamarripa 2024 03:52:49 PM EST > requested an [facility] referral for visit with Dr. Hutson for screening colon with Dr. 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 Section Notes: Nonsmoker; occasional beer Nonsmoker; occasional beer Problems Problem Type SNOMED Code ICD Code Onset Dates Problem Status W/U Status Risk Notes Problem Screening for malignant neoplasm of colon (823198893) Encounter for screening for malignant neoplasm of colon (Z12.11) Active confirmed Problem Preprocedural examination (924942612737154) Preprocedural examination (Z01.818) Active confirmed Problem Family History of Cancer of Colon (Situation) (647492962) Family history of colon cancer (Z80.0) Active confirmed Problem History of adenomatous polyp of colon (256862950) Hx of adenomatous colonic polyps (Z86.010) Active confirmed Plan Of Treatment Future Test Test Name Order Date COLONOSCOPY 09/23/2014 COLONOSCOPY 12/11/2019 Next Appt Details Provider Name:Tray Hutson , 05/19/2025 01:20:00 PM, [address] [place] [address], [address], [place], [address], Insurance Providers Payer Name Payer Address Payer Phone Subscriber Number Group Number Insured Name Patient Relationship to Insured Coverage Start Date Coverage End Date [facility] [employer] [address] [place] [address] [id number] CAROL NEELY Self - patient is the insured Medical (General) History Medical History History ICD Code Colonoscopy 06-16-2009 and 2003--neg. for adenomas Denies ND,DM,CVA,Lung disease,renal dise ase Colonoscopy in 11/2014 with a small tubul ar adenoma removed Negative upper GI series in August of 2019. Surgical History Surgery Date(Month/Year)
--- OUTSIDE RECORDS SUMMARY | 2025-04-22 11:15 | XMS_ITS | Patient Health Record ---
Author Organization [facility] [place] Address [address] [place] [address] Care Team Providers Care Lifestyle Consultant Name Role Phone Abdoulaye King Primary Care Provider Marlon Peña Unavailable [phone] Reason For Referral No Information Social History Tobacco use other than smoking: Question Answer Notes Are you an other tobacco user? No Plan Of Treatment Pending Test Test Name Order Date [id number] Destruction, -03/20/2016 [id number] Destruction, 05-0604/06/2016 [id number] Destruction, 05-0605/11/2016 [id number] Destruction, 05-0606/21/2016 [id number] Plate 03/20/2016 Insurance Providers Payer Name Payer Address Payer Phone Subscriber Number Group Number Insured Name Patient Relationship to Insured Coverage Start Date Coverage End Date [facility] [address] [place] [address] [id number] Jeremías Garcia Self - patient is the insured
== END 2025-04-22 11:43 | disposition home or self-care (01) ==
LOC: HO.HMCH 10:11
PROVIDERS: PCP Internal Medicine; Visit Provider Internal Medicine
DX: Z00.00 Encounter for general adult medical examination without abnormal findings (principal); I42.9 Cardiomyopathy, unspecified; I35.1 Nonrheumatic aortic (valve) insufficiency; I10 Essential (primary) hypertension; E78.00 Pure hypercholesterolemia, unspecified; D64.9 Anemia, unspecified; D72.10 Eosinophilia, unspecified; E55.9 Vitamin D deficiency, unspecified; N52.9 Male erectile dysfunction, unspecified

== ENCOUNTER → 2025-04-22 10:10 | Outpatient (BNVA) | payer MEDICARE, SELFPAY | PROVIDERS: PCP Internal Medicine; Visit Provider Internal Medicine | DX: Z00.01 Encounter for general adult medical examination with abnormal findings (principal); Q23.81 Bicuspid aortic valve; I42.9 Cardiomyopathy, unspecified; I35.1 Nonrheumatic aortic (valve) insufficiency; I10 Essential (primary) hypertension; E78.00 Pure hypercholesterolemia, unspecified; D64.9 Anemia, unspecified; D72.10 Eosinophilia, unspecified; E55.9 Vitamin D deficiency, unspecified; N52.9 Male erectile dysfunction, unspecified; Z13.31 Encounter for screening for depression | CPT/HCPCS: 96127; 99397 ==